=== PATIENT | male | born 1960 | race American Indian/Alaskan Native ===

== ENCOUNTER 2018-01-22 06:26 | Day surgery (SDC) | payer MEDICARE ==
[2018-01-22] MEDS ORDERED: NACL 0.9% 500 ML 500 ML ONE (06:49)
[2018-01-22] MEDS ORDERED: NACL 0.9% 500 ML 500 ML IV SCH (07:00)
[2018-01-22 07:23] LABS: Basophils # (Auto) 0.1 K/mm3 (0.0-0.1); Basophils % (Auto) 0.8 % (0.0-1.8); Eosinophils # (Auto) 0.2 K/mm3 (0.0-0.4); Eosinophils % (Auto) 2.4 % (0.0-4.3); Hematocrit 37.9 % (35.5-45.6); Hemoglobin 12.7 gm/dl (11.8-15.2); Lymphocytes # (Auto) 2.5 K/mm3 (1.2-5.4); Lymphocytes % (Auto) 34.7 % (13.4-35.0); Mean Corpuscular HGB Conc 33 % (32-34); Mean Corpuscular Hemoglobin 31 pg (28-32); Mean Corpuscular Volume 92 fl (84-94); Monocytes # (Auto) 0.8 K/mm3 (0.0-0.8); Monocytes % (Auto) 10.8 % (0.0-7.3); Platelet Count 230 K/mm3 (140-440); Red Blood Count 4.13 M/mm3 (3.65-5.03); Red Cell Distribution Width 14.3 % (13.2-15.2)
[2018-01-22 07:33] LABS: INR 1.05 (0.87-1.13)
[2018-01-22 07:34] LABS: Partial Thromboplastin Time 24.8 Sec. (24.2-36.6)
[2018-01-22 07:41] LABS: BUN/Creatinine Ratio 7; Blood Urea Nitrogen 9 mg/dL (9-20); Calcium 8.8 mg/dL (8.4-10.2); Hemolysis Index 36
[2018-01-22] MEDS ORDERED: HEPARIN/NS 5000 UNIT/500ML(CATH LAB) 1,000 ML IR ONE (08:22)
[2018-01-22] MEDS ORDERED: HEPARIN 10,000 UNITS/10 ML ONE (08:22)
[2018-01-22] MEDS ORDERED: CALAN ONE (08:23)
[2018-01-22] MEDS ORDERED: VERSED ONE (08:23)
[2018-01-22] MEDS ORDERED: SUBLIMAZE ONE (08:23)
[2018-01-22] MEDS ORDERED: XYLOCAINE 2% INFILTRATI ONE (08:23)
[2018-01-22] MEDS ORDERED: NITROGLYCERIN SYRINGE 3 ML ONE (08:24)
--- NOTE | 2018-01-22 09:27 | Short Stay Summary ---
Short Stay Documentation Date of service: 01/22/18 - History H&P: obtained from office - Allergies and Medications Current Medications: Allergies No Known Allergies Allergy (Verified 10/27/14 18:16) Home Medications Medication Instructions Recorded Confirmed Last Taken Type Nitroglycerin (Nf) [Nitrostat] 0.3 mg SL Q5MIN PRN 09/30/16 01/22/18 1 Week Ago History ~01/15/18 Omeprazole 20 mg PO DAILY 09/30/16 01/22/18 01/21/18 History Aspirin [Aspirin TAB] 325 mg PO QDAY #30 tablet 10/05/16 01/22/18 01/22/18 05: 00 Rx Clopidogrel Bisulfate [Plavix] 75 mg PO DAILY #30 tablet 10/05/16 01/22/1801/22 05:00 Rx ISOSORBIDE MONOnitrate [Imdur ER] 120 mg PO QDAY #60 tablet 10/05/16 01/22/18 Rx Rosuvastatin Calcium [Crestor] 40 mg PO QHS #30 tablet 10/05/16 01/22/18 Rx hydrALAZINE [Apresoline TAB] 25 mg PO Q8HR #90 tablet 10/05/16 01/22/18 Unknown Rx Carvedilol [Coreg] 3.125 mg PO BID 01/22/18 01/22/18 01/22/18 05:00 History Fenofibrate 200 mg PO DAILY 01/22/18 01/22/18 01/21/18 History Insulin Lispro [HumaLOG VIAL] 16 units SQ BID 01/22/18 01/22/18 01/21/18 17:00 History NIFEdipine XL [Procardia Xl] 60 mg PO QDAY 01/22/18 01/22/18 01/21/18 History Active Medications Sodium Chloride (Nacl 0.9% 500 Ml) 500 mls @ 50 mls/hr IV DIRECT RACH Stop: 01/22/18 16:59 Last Admin: 01/22/18 07:30 Dose: 50 mls/hr - Physical exam General appearance: no acute distress HEENT: Atraumatic Lungs: Clear to auscultation Breasts: deferred Heart: Regular rate Gastrointestinal: normal Male Genitourinary: deferred Female Genitourinary: deferred Rectal Exam: deferred Extremities: no ischemia Neurological: Normal gait - Brief post op/procedure progress note Date of procedure: 01/22/18 Pre-op diagnosis: Chest Pain Post-op diagnosis: same Procedure: LHC and LV gram Anesthesia: MAC Findings: See report Surgeon: KHURRAM AGUILAR Estimated blood loss: none Pathology: none Condition: stable - Hospital course Hospital course: Uneventful - Disposition Condition at discharge: Good Disposition: DC-01 TO HOME OR SELFCARE Short Stay Discharge Plan Activity: advance as tolerated Weight Bearing Status: Weight Bear as Tolerated Diet: low fat, low cholesterol, low salt, diabetic Follow up with: URIEL GREENE MD [Primary Care Provider] - 7 Days
[2018-01-22] MEDS ORDERED: NACL 0.9% 1000 ML 1,000 ML IV SCH (10:00)
--- NOTE | 2018-01-22 10:08 | Cardiac Catherization Report ---
LEFT HEART CATHETERIZATION INDICATION: Stable angina. ORDERING PHYSICIAN: Ryan Croft MD PROCEDURES PERFORMED: 1. Selective left and right coronary angiography. 2. Left ventriculography. DESCRIPTION OF PROCEDURE: After obtaining the consent, the patient was draped using sterile technique. A 2% lidocaine was injected into the right wrist. A 6-[place] vascular sheath was inserted into the right radial artery. A 6[place] JL3.5 catheter was used to selectively engage left coronary artery. A 6[place] JR4 catheter was used to selectively engage the right coronary artery. A 6-[place] JR4 catheter was used to hand inject the left ventriculogram. No complications occurred during the procedure. Hemostasis was achieved at the end of the procedure using manual pressure. SPECIMEN REMOVED: None. ESTIMATED BLOOD LOSS: Minimal. SEDATION ADMINISTERED: 1 mg of IV Versed and 50 mcg of IV fentanyl. PHYSICIAN-PATIENT [id number] SEDATION START TIME: 8:58 a.m. PHYSICIAN-PATIENT [id number]-SU-[id number] SEDATION STOP TIME: 9:13 a.m. TOTAL SEDATION TIME: 15 minutes. FINDINGS: HEMODYNAMICS: 1. Aortic pressure 158/85. LV systolic pressure 158 mmHg. No gradient across the left ventricular outflow tract. 2. LVEDP measured at 27 mmHg. CARDIAC STRUCTURES: The left ventricle is normal in size and systolic function. Left ventricular ejection fraction estimated between 65% and 70%. The proximal aortic root is within normal limits. CORONARY ANATOMY: 1. This is a right dominant circulation. 2. The left main appears to be angiographically normal. 3. The left anterior descending artery has evidence of diffuse 50% tubular disease in the mid segment. 4. The left circumflex artery has evidence of a patent stent in the mid segment. The AV groove vessel is occluded and is unchanged from the study dated 11/20/2012. 5. The right coronary artery is a small caliber vessel. The right coronary artery appears to be a dominant vessel with no obstructive disease noted within the right coronary artery. IMPRESSION: 1. Patent circumflex artery stent with a known occluded atrioventricular groove vessel due to stent jailing. This finding is unchanged from the cath performed in 2012. 2. Moderate nonobstructive mid left anterior descending tubular disease, also unchanged from the study dated 11/2012. 3. Normal left ventricular size and systolic function with an ejection fraction estimated between 65% and 70%. 4. Left ventricular end-diastolic pressure measured 27 mmHg. RECOMMENDATIONS: Continue current medical therapy and risk factor modification. [facility]# [id number] MARY/DANIKA
[2018-01-22 12:20] VITALS: BP 163/74
== END 2018-01-22 12:45 | disposition home or self-care (01) ==
LOC: CATHLABREC 06:26
PROVIDERS: ATTEND Internal Medicine Cardiovascular Disease
DX: I25.118 Atherosclerotic heart disease of native coronary artery with other forms of angina pectoris (principal); I11.0 Hypertensive heart disease with heart failure; I50.9 Heart failure, unspecified; E10.65 Type 1 diabetes mellitus with hyperglycemia; E78.2 Mixed hyperlipidemia; E78.00 Pure hypercholesterolemia, unspecified; G47.30 Sleep apnea, unspecified; D64.9 Anemia, unspecified; M19.90 Unspecified osteoarthritis, unspecified site; F41.9 Anxiety disorder, unspecified; Z72.89 Other problems related to lifestyle; Z98.890 Other specified postprocedural states; Z82.49 Family history of ischemic heart disease and other diseases of the circulatory system; Z79.899 Other long term (current) drug therapy; Z79.4 Long term (current) use of insulin; Z79.82 Long term (current) use of aspirin; Z87.891 Personal history of nicotine dependence
CPT/HCPCS: 36415; 80048; 85025; 85610; 85730; 93005; 93010; 93458; 99156; C1894; J1644; J2250; J3010; J7040; Q9967

== ENCOUNTER 2019-03-30 06:28 | Day surgery (SDC) | payer MEDICARE ==
[2019-03-30] MEDS ORDERED: ASPIRIN EC 325 MG TAB PO NR (06:46)
[2019-03-30] MEDS ORDERED: SODIUM CHLORIDE 0.9% 500 ML 500 ML IV SCH (07:00)
[2019-03-30 07:48] LABS: Basophils % (Auto) 0.5 % (0.0-1.8); Eosinophils # (Auto) 0.1 K/mm3 (0.0-0.4); Eosinophils % (Auto) 2.6 % (0.0-4.3); Hematocrit 35.9 % (35.5-45.6); Hemoglobin 12.2 gm/dl (11.8-15.2); Lymphocytes # (Auto) 2.3 K/mm3 (1.2-5.4); Lymphocytes % (Auto) 43.2 % (13.4-35.0); Mean Corpuscular HGB Conc 34 % (32-34); Mean Corpuscular Volume 97 fl (84-94); Monocytes # (Auto) 0.5 K/mm3 (0.0-0.8); Monocytes % (Auto) 9.7 % (0.0-7.3); Platelet Count 242 K/mm3 (140-440); Red Blood Count 3.69 M/mm3 (3.65-5.03); Red Cell Distribution Width 14.4 % (13.2-15.2)
[2019-03-30 07:55] LABS: BUN/Creatinine Ratio 7; Blood Urea Nitrogen 8 mg/dL (9-20); Calcium 8.9 mg/dL (8.4-10.2); Hemolysis Index 14; INR 1.12 (0.87-1.13)
[2019-03-30] MEDS ORDERED: HEPARIN/NS 5000 UNIT/500ML 1,000 ML IR ONE (09:09)
[2019-03-30] MEDS ORDERED: HEPARIN 10,000 UNITS/10 ML VIAL ONE (09:09)
[2019-03-30] MEDS ORDERED: NITROGLYCERIN SYRINGE 3 ML ONE (09:10)
[2019-03-30] MEDS ORDERED: fentaNYL 100 MCG/2 ML INJ ONE (09:10)
[2019-03-30] MEDS ORDERED: VERAPAMIL 5 MG/2 ML INJ ONE (09:10)
[2019-03-30] MEDS ORDERED: MIDAZOLAM 2 MG/2 ML INJ ONE (09:10)
[2019-03-30] MEDS ORDERED: LIDOCAINE (2%) 20 MG/1 ML VIAL 20 ML MDV INFILTRATI ONE (09:10)
--- NOTE | 2019-03-30 10:37 | Discharge Summary ---
Short Stay Discharge Plan Activity: advance as tolerated Weight Bearing Status: Full Weight Bearing Diet: low fat, low cholesterol, low salt Wound: keep clean and dry Special Instructions: no heavy lifting (3 days) Follow up with: URIEL GREENE MD [Primary Care Provider] - 7 Days GUDELIA FLETCHER MD [Staff Physician] - 7 Days
--- NOTE | 2019-03-30 10:58 | Cardiac Catherization Report ---
CARDIAC CATHETERIZATION REPORT REASON FOR PROCEDURE: Chest pain and coronary artery disease. The patient is a 59-year-old man with a history of coronary artery disease, status post distal circumflex artery stenting, presented for cardiac catheterization for recurrent chest pain. PROCEDURES: 1. Left heart catheterization. 2. Selective left and right coronary angiography. 3. Left ventricular angiography. 4. Sedation time, start 09:42, end 09:59. The patient was prepped and draped in a sterile fashion after informed consent. The right radial cath site was prepped and draped after a negative Florin's test. The right radial artery was entered using Seldinger technique followed by placement of a 6-[place] hydrophilic sheath. Routine radial cocktail was administered via the sheath. Selective left and right coronary angiography was performed using a #3.5 left Shayne, and a #4 right Shayne. A pigtail catheter was used for left ventricular angiography. Catheters and the sheaths were removed, hemostasis achieved using a TR band. The patient was returned to postprocedure unit in stable condition. There were no complications. FINDINGS: HEMODYNAMICS: Left ventricular end-diastolic pressure was 22, following coronary angiography. Ascending aortic pressure 136/68. There was no significant pressure gradient on pullback across the aortic valve. CORONARY ANGIOGRAPHY: The left main coronary artery was free of significant disease. There was a long segment of mild myocardial bridging of the mid LAD, otherwise the LAD and diagonal branches were angiographically normal. The circumflex artery was a large vessel, codominant with the right coronary artery. A stent was visible in the distal circumflex artery, perfusing a large posterior left ventricular branch. The stent was widely patent. There was mild in-stent restenosis of the distal third of the stent, with a 20-30% luminal stenosis. This was unchanged from review of the angiograms from 03/22/2018. A very small caliber, distal branch, which originated from the stented segment was occluded at its ostium, and perfused from the right coronary artery by right to left collaterals. This lesion was also unchanged from the previous angiogram a year ago. The right coronary artery was a relatively small caliber vessel, codominant with the circumflex, and free of significant disease. There was normal to hyperdynamic left ventricular systolic function with ejection fraction 65-70%. CONCLUSION: 1. Single vessel coronary artery disease, with a widely patent distal circumflex artery stent, demonstrating only mild in-stent restenosis. 2. Chronic total occlusion of a very small caliber, distal circumflex artery branch, originated from within the stented segment. 3. 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 4. Normal to hyperdynamic left ventricular systolic function, ejection fraction 65-70%. RECOMMENDATION: Medical therapy and risk factor modification. [facility]# [id number] CA/NTS
[2019-03-30] MEDS ORDERED: SODIUM CHLORIDE 0.9% 1000 ML 1,000 ML IV SCH (11:00)
[2019-03-30 13:02] VITALS: BP 148/70
== END 2019-03-30 13:30 | disposition home or self-care (01) ==
LOC: CATHLABREC 06:28
PROVIDERS: ATTEND Internal Medicine Cardiovascular Disease
DX: I25.10 Atherosclerotic heart disease of native coronary artery without angina pectoris (principal); E78.2 Mixed hyperlipidemia; I11.0 Hypertensive heart disease with heart failure; E10.65 Type 1 diabetes mellitus with hyperglycemia; I50.9 Heart failure, unspecified; G47.30 Sleep apnea, unspecified; M19.90 Unspecified osteoarthritis, unspecified site; F41.9 Anxiety disorder, unspecified; T82.855A Stenosis of coronary artery stent, initial encounter; Z79.899 Other long term (current) drug therapy; Z79.82 Long term (current) use of aspirin; Z79.4 Long term (current) use of insulin; Z87.891 Personal history of nicotine dependence; Z98.890 Other specified postprocedural states; Z95.5 Presence of coronary angioplasty implant and graft; Z72.89 Other problems related to lifestyle; Z82.49 Family history of ischemic heart disease and other diseases of the circulatory system
CPT/HCPCS: 36415; 80048; 82962; 85025; 85610; 85730; 93005; 93010; 93458; 99156; C1894; J1644; J2250; J3010; J7040; Q9967

== ENCOUNTER 2020-07-15 14:20 | Inpatient (IN) | payer MEDICARE ==
[2020-07-15 15:06] LABS: Hematocrit 21.9 % (35.5-45.6); Hemoglobin 7.5 gm/dl (11.8-15.2); Mean Corpuscular HGB Conc 34 % (32-34); Mean Corpuscular Volume 98 fl (84-94); Platelet Count 305 K/mm3 (140-440); Red Blood Count 2.24 M/mm3 (3.65-5.03); Red Cell Distribution Width 16.5 % (13.2-15.2)
--- NOTE | 2020-07-15 15:17 | XRay Report ---
CHEST 1 VIEW 07/15/2020 2:11 PM INDICATION / CLINICAL INFORMATION: Chest Pain. COMPARISON: 10/02/2016. FINDINGS: SUPPORT DEVICES: None. HEART / MEDIASTINUM: No significant abnormality. LUNGS / PLEURA: No significant pulmonary or pleural abnormality. No pneumothorax. ADDITIONAL FINDINGS: No significant additional findings. IMPRESSION: No acute cardiopulmonary abnormality. Signer Name: Tom Cerna MD Signed: 07/15/2020 3:12 PM Workstation Name: [id number]
[2020-07-15 15:19] LABS: Basophils % (Auto) 0.3 % (0.0-1.8); Eosinophils # (Auto) 0.1 K/mm3 (0.0-0.4); Eosinophils % (Auto) 0.8 % (0.0-4.3); Lymphocytes # (Auto) 2.2 K/mm3 (1.2-5.4); Lymphocytes % (Auto) 23.3 % (13.4-35.0); Monocytes % (Auto) 10.7 % (0.0-7.3)
[2020-07-15 15:22] LABS: BUN/Creatinine Ratio 8; Blood Urea Nitrogen 8 mg/dL (9-20); Calcium 8.5 mg/dL (8.4-10.2); Hemolysis Index 1
[2020-07-15 15:27] LABS: Albumin 2.8 g/dL (3.9-5)
[2020-07-15 15:52] LABS: Total Cells Counted 100
[2020-07-15 15:53] LABS: RBC Morphology Normal
[2020-07-15] MEDS ORDERED: NITROGLYCERIN 2% OINT 1 GM TP ONE (16:16)
--- NOTE | 2020-07-15 16:16 | Emergency Department Report ---
ED Chest Pain HPI - General Chief Complaint: Chest Pain Stated Complaint: CHEST PAIN Time Seen by Provider: 07/15/20 15:50 Source: patient Mode of arrival: Ambulatory Limitations: No Limitations - History of Present Illness Initial Comments: 60-year old male with a past medical history of CAD with 4 stents, CHF, diabetes, hypertension, and recent diagnosis of anemia presents to the hospital complaints of chest pain since 6:30 AM. Pain is substernal and left-sided radiating to both arms. Pain is described as a constant pressure with associated shortness of breath. He denies nausea, vomiting, or diaphoresis. Patient states pain was 7/10 intensity. He received nitroglycerin x2 and aspirin 325 mg in route and pain decreased to 4/10. Patient states he is currently awaiting Covid test results. Covid test was collected by the health department yesterday. He reports a positive Covid exposure, cough, and recent loss of taste or smell that is "just starting to come back". Patient also reports that he was recent diagnosed with anemia and did not have blood in his stools. His PMD is in the process of making outpatient arrangements with a ematologist. Patient reports compliance with his medications including aspirin and Plavix Severity scale (0 -10): 6 - Related Data Home Medications Medication Instructions Recorded Confirmed Last Taken Nitroglycerin (Nf) [Nitrostat] 0.4 mg SL Q5MIN PRN 09/30/16 03/30/19 1 Week Ago ~03/23/19 Omeprazole 20 mg PO DAILY 09/30/16 03/30/19 03/29/19 Fenofibrate 200 mg PO DAILY 01/22/18 03/30/19 03/29/19 Insulin Lispro [HumaLOG VIAL] 16 units SQ BID 01/22/18 03/30/19 03/29/19 NIFEdipine XL [Procardia Xl] 60 mg PO QDAY 01/22/18 03/30/19 03/29/19 carvediloL [Coreg] 3.125 mg PO BID 01/22/18 03/30/19 03/29/19 Aspirin EC [Ecotrin] 325 mg PO DAILY 03/30/19 03/30/19 03/29/19 Insulin Glargine,Hum.rec.anlog 40 units SQ HS 03/30/19 03/30/19 03/29/19 [Chichi Weir] Previous Rx's Medication Instructions Recorded Last Taken Type Clopidogrel Bisulfate [Plavix] 75 mg PO DAILY #30 tablet 10/05/16 03/29/19 Rx ISOSORBIDE MONOnitrate [Imdur ER] 120 mg PO QDAY #60 tablet 10/05/16 03/29/19 Rx Rosuvastatin Calcium [Crestor] 40 mg PO QHS #30 tablet 10/05/16 03/29/19 Rx hydrALAZINE [Apresoline TAB] 25 mg PO Q8HR #90 tablet 10/05/16 03/29/19 Rx Allergies Allergy/AdvReac Type Severity Reaction Status Date / Time No Known Allergies Allergy Verified 10/27/14 18:16 Heart Score - HEART Score History: Slightly suspicious EKG: Non-specific Age: 45-65 Risk factors: > 3 risk factors or hx of atherosclerotic disease Troponin: 1-3x normal limit HEART Score: 5 ED Review of Systems ROS: Stated complaint: CHEST PAIN Other details as noted in HPI Comment: All other systems reviewed and negative ED Past Medical Hx - Past Medical History Hx Hypertension: Yes Hx Heart Attack/AMI: Yes (2012) Hx Congestive Heart Failure: Yes Hx Diabetes: Yes Hx Deep Vein Thrombosis: No Hx Pulmonary Embolism: No Hx Liver Disease: No Hx Renal Disease: Yes (saw a Renal Dr but everything okay) Hx Arthritis: Yes (bilateral knees) Hx Seizures: No Hx Asthma: No Hx COPD: No Hx Tuberculosis: No Hx Dementia: No Hx HIV: No - Surgical History Hx Coronary Stent: Yes (4: last stent 2012 place 2 stents) Hx Pacemaker: No Hx Internal Defibrillator: No - Social History Smoking Status: Never Smoker Substance Use Type: None - Medications Home Medications: Home Medications Medication Instructions Recorded Confirmed Last Taken Type Nitroglycerin (Nf) [Nitrostat] 0.4 mg SL Q5MIN PRN 09/30/16 03/30/19 1 Week Ago History ~03/23/19 Omeprazole 20 mg PO DAILY 09/30/16 03/30/19 03/29/19 History Clopidogrel Bisulfate [Plavix] 75 mg PO DAILY #30 tablet 10/05/16 03/30/19 03/29/19 Rx ISOSORBIDE MONOnitrate [Imdur ER] 120 mg PO QDAY #60 tablet 10/05/16 03/30/19 03/29/19 Rx Rosuvastatin Calcium [Crestor] 40 mg PO QHS #30 tablet 10/05/16 03/30/19 03/29/19 Rx hydrALAZINE [Apresoline TAB] 25 mg PO Q8HR #90 tablet 10/05/16 03/30/19 03/29/19 Rx Fenofibrate 200 mg PO DAILY 01/22/18 03/30/19 03/29/19 History Insulin Lispro [HumaLOG VIAL] 16 units SQ BID 01/22/18 03/30/19 03/29/19 History NIFEdipine XL [Procardia Xl] 60 mg PO QDAY 01/22/18 03/30/19 03/29/19 History carvediloL [Coreg] 3.125 mg PO BID 01/22/18 03/30/19 03/29/19 History Aspirin EC [Ecotrin] 325 mg PO DAILY 03/30/19 03/30/19 03/29/19 History Insulin Glargine,Hum.rec.anlog 40 units SQ HS 03/30/19 03/30/19 03/29/19 History [Chichi Weir] ED Physical Exam - General Limitations: No Limitations - Other Other exam information: General: No acute distress Head: Atraumatic Eyes: normal appearance Neck: Normal appearance, no midline tenderness Chest: Clear to auscultation bilaterally CV: Regular rate and rhythm Abdomen: Soft, normal bowel sounds, nontender, nondistended, no rebound or guarding Rectal: Guaiac negative brown stool Back: Normal inspection Extremity: Normal inspection, full range of motion Neuro: Alert O x 3, no facial asymmetry, speech clear, no gross motor sensory deficit Psych: Appropriate behavior Skin: No rash ED Course Vital Signs 07/15/20 07/15/20 07/15/20 14:29 16:13 16:30 Temperature 98.4 F Pulse Rate 105 H 73 89 Respiratory 20 19 20 Rate Blood Pressure 153/60 143/57 O2 Sat by Pulse 100 100 100 Oximetry 07/15/20 07/15/20 07/15/20 17:00 17:22 17:30 Temperature Pulse Rate 84 88 85 Respiratory 17 19 Rate Blood Pressure 142/56 150/56 150/56 O2 Sat by Pulse 100 100 Oximetry 07/15/20 18:00 Temperature Pulse Rate 91 H Respiratory 18 Rate Blood Pressure 135/51 O2 Sat by Pulse 100 Oximetry - Reevaluation(s) Reevaluation #1: 07/15/20 18:15 Repeat troponin reviewed and stable BIPIN score - Bipin Score Age > 65: (0) No Aspirin use within the Past 7 Days: (1) Yes ED Medical Decision Making - Lab Data Result diagrams: 07/15/20 14:42 07/15/20 16:16 Lab Results 07/15/20 07/15/20 07/15/20 Range/Units 14:42 14:42 14:57 WBC 9.4 (4.5-11.0) K/mm3 RBC 2.24 L (3.65-5.03) M/mm3 Hgb 7.5 L (11.8-15.2) gm/dl Hct 21.9 L (35.5-45.6) % MCV 98 H (84-94) fl MCH 33 H (28-32) pg MCHC 34 (32-34) % RDW 16.5 H (13.2-15.2) % Plt Count 305 (140-440) K/mm3 Lymph % (Auto) 23.3 (13.4-35.0) % Armstrong % (Auto) 10.7 H (0.0-7.3) % Eos % (Auto) 0.8 (0.0-4.3) % Baso % (Auto) 0.3 (0.0-1.8) % Lymph # (Auto) 2.2 (1.2-5.4) K/mm3 Armstrong # (Auto) 1.0 H (0.0-0.8) K/mm3 Eos # (Auto) 0.1 (0.0-0.4) K/mm3 Baso # (Auto) 0.0 (0.0-0.1) K/mm3 Add Manual Diff Complete Total Counted 100 Seg Neutrophils % 64.9 (40.0-70.0) % Seg Neuts % (Manual) 65.0 (40.0-70.0) % Lymphocytes % (Manual) 21.0 (13.4-35.0) % Monocytes % (Manual) 12.0 H (0.0-7.3) % Eosinophils % (Manual) 2.0 (0.0-4.3) % Nucleated RBC % Not Reportable Seg Neutrophils # 6.1 (1.8-7.7) K/mm3 Seg Neutrophils # Man 6.1 (1.8-7.7) K/mm3 Band Neutrophils # 0.0 K/mm3 Lymphocytes # (Manual) 2.0 (1.2-5.4) K/mm3 Abs React Lymphs (Man) 0.0 K/mm3 Monocytes # (Manual) 1.1 H (0.0-0.8) K/mm3 Eosinophils # (Manual) 0.2 (0.0-0.4) K/mm3 Basophils # (Manual) 0.0 (0.0-0.1) K/mm3 Metamyelocytes # 0.0 K/mm3 Myelocytes # 0.0 K/mm3 Promyelocytes # 0.0 K/mm3 Blast Cells # 0.0 K/mm3 WBC Morphology Not Reportable Hypersegmented Neuts Not Reportable Hyposegmented Neuts Not Reportable Hypogranular Neuts Not Reportable Smudge Cells Not Reportable Toxic Granulation Not Reportable Toxic Vacuolation Not Reportable Dohle Bodies Not Reportable Pelger-Huet Anomaly Not Reportable Da Rods Not Reportable Platelet Estimate Not Reportable Clumped Platelets Not Reportable Plt Clumps, EDTA Not Reportable Large Platelets Not Reportable Giant Platelets Not Reportable Platelet Satelliting Not Reportable Plt Morphology Comment Not Reportable RBC Morphology Normal Dimorphic RBCs Not Reportable Polychromasia Not Reportable Hypochromasia Not Reportable Poikilocytosis Not Reportable Anisocytosis Not Reportable Microcytosis Not Reportable Macrocytosis Not Reportable Spherocytes Not Reportable Pappenheimer Bodies Not Reportable Sickle Cells Not Reportable Target Cells Not Reportable Tear Drop Cells Not Reportable Ovalocytes Not Reportable Helmet Cells Not Reportable Quiros-Lyles Bodies Not Reportable [place] Rings Not Reportable [place] Cells Not Reportable Bite Cells Not Reportable Crenated Cell Not Reportable Elliptocytes Not Reportable Acanthocytes (Spur) Not Reportable Rouleaux Not Reportable Hemoglobin C Crystals Not Reportable Schistocytes Not Reportable Malaria parasites Not Reportable Robinson Bodies Not Reportable Hem Pathologist Commnt No Sodium 128 L (137-145) mmol/L Potassium 4.0 (3.6-5.0) mmol/L Chloride 98.9 (98-107) mmol/L Carbon Dioxide 20 L (22-30) mmol/L Anion Gap 13 mmol/L BUN 8 L (9-20) mg/dL Creatinine 1.0 (0.8-1.3) mg/dL Estimated GFR > 60 ml/min BUN/Creatinine Ratio 8 % Glucose 380 H (75-100) mg/dL Calcium 8.5 (8.4-10.2) mg/dL Total Bilirubin 1.30 H (0.1-1.2) mg/dL Direct Bilirubin 1.0 H (0-0.2) mg/dL Indirect Bilirubin 0.3 mg/dL AST 46 H (5-40) units/L ALT 21 (7-56) units/L Alkaline Phosphatase 171 H (35-129) units/L Troponin T 0.056 H (0.00-0.029) ng/mL NT-Pro-B Natriuret Pep 702.5 (0-900) pg/mL Total Protein 6.5 (6.3-8.2) g/dL Albumin 2.8 L (3.9-5) g/dL Albumin/Globulin Ratio 0.8 % - EKG Data -: EKG Interpreted by Ar EKG shows normal: sinus rhythm, ST-T waves (No ST elevation ND) Rate: normal - EKG Data When compared to previous EKG there are: no significant change - Radiology Data Radiology results: report reviewed Chest x-ray: No acute finding - Medical Decision Making 60-year male with chest pain with significant cardiac history. Troponin mildly elevated. Also recent Covid exposure with negative chest x-ray and normal pulse ox. Patient placed in respiratory isolation until Covid test result. Patient treated in the ED with Nitropaste. Mild elevation troponin noted with no acute EKG changes. Cardiology consult ordered. Mild elevation in glucose without signs of DKA. IV insulin ordered. Anemia noted with guaiac negative stools and no signs of bleeding. Case discussed with hospitalist for admission. Critical Care Time: No Critical care attestation.: If time is entered above; I have spent that time in minutes in the direct care of this critically ill patient, excluding procedure time. ED Disposition Clinical Impression: Chest pain, Elevated troponin, Type II diabetes mellitus, uncontrolled, History of heart artery stent, Suspected COVID-19 virus infection, Anemia Disposition: OP ADMIT IP TO THIS HOSP Is pt being admited?: Yes Condition: Stable Time of Disposition: 16:47 (Dr. Gimenez/hospitalist)
[2020-07-15] MEDS ORDERED: INSULIN REGULAR, HUMAN 100 UNITS/1 ML IV ONE (16:19)
[2020-07-15 17:04] LABS: Creatine Kinase MB 2.7 ng/mL (0.0-4.0)
[2020-07-15 17:05] LABS: C-Reactive Protein 1.1 mg/dL (0.00-1.30)
[2020-07-15 18:24] LABS: Chol/HDL Ratio 1.7 %
--- NOTE | 2020-07-15 21:17 | History and Physical Report ---
History of Present Illness Date of examination: 07/15/20 Date of admission: 07/15/20 16:48 Chief complaint: Chest pain History of present illness: 60-year old male with a past medical history of CAD with 4 stents, CHF, diabetes, hypertension, and recent diagnosis of anemia presents to the hospital complaints of chest pain since 6:30 AM. Pain is substernal and left-sided radiating to both arms. Pain is described as a constant pressure with associated shortness of breath. He denies nausea, vomiting, or diaphoresis. Patient states pain was 7/10 intensity. He received nitroglycerin x2 and aspirin 325 mg in route and pain decreased to 4/10. Patient states he is currently awaiting Covid test results. Covid test was collected by the health department yesterday. He reports a positive Covid exposure, cough, and recent loss of taste or smell that is "just starting to come back". Patient also reports that he was recent diagnosed with anemia and did not have blood in his stools. His PMD is in the process of making outpatient arrangements with a bundle collector. Patient reports compliance with his medications including aspirin and Plavix Severity scale (0 -10): 6 - Related Data Home Medications Medication Instructions Recorded Confirmed Last Taken Nitroglycerin (Nf) [Nitrostat] 0.4 mg SL Q5MIN PRN 09/30/16 03/30/19 1 Week Ago ~03/23/19 Omeprazole 20 mg PO DAILY 09/30/16 03/30/19 03/29/19 Fenofibrate 200 mg PO DAILY 01/22/18 03/30/19 03/29/19 Insulin Lispro [HumaLOG VIAL] 16 units SQ BID 01/22/18 03/30/19 03/29/19 NIFEdipine XL [Procardia Xl] 60 mg PO QDAY 01/22/18 03/30/19 03/29/19 carvediloL [Coreg] 3.125 mg PO BID 01/22/18 03/30/19 03/29/19 Aspirin EC [Ecotrin] 325 mg PO DAILY 03/30/19 03/30/19 03/29/19 Insulin Glargine,Hum.rec.anlog 40 units SQ HS 03/30/19 03/30/19 03/29/19 [Chichi Weir] Previous Rx's Medication Instructions Recorded Last Taken Type Clopidogrel Bisulfate [Plavix] 75 mg PO DAILY #30 tablet 10/05/16 03/29/19 Rx ISOSORBIDE MONOnitrate [Imdur ER] 120 mg PO QDAY #60 tablet 10/05/16 03/29/19 Rx Rosuvastatin Calcium [Crestor] 40 mg PO QHS #30 tablet 10/05/16 03/29/19 Rx hydrALAZINE [Apresoline TAB] 25 mg PO Q8HR #90 tablet 10/05/16 03/29/19 Rx Allergies Allergy/AdvReac Type Severity Reaction Status Date / Time No Known Allergies Allergy Verified 10/27/14 18:16 Heart Score - HEART Score History: Slightly suspicious EKG: Non-specific Age: 45-65 Risk factors: > 3 risk factors or hx of atherosclerotic disease Troponin: 1-3x normal limit HEART Score: 5 - Past Medical History --Hypertension: Yes --Heart Attack/AMI: Yes (2012) --Congestive Heart Failure: Yes --Diabetes: Yes --Renal Disease: Yes (saw a Renal Dr but everything okay) --Arthritis: Yes (bilateral knees) - Surgical History --Coronary Stent: Yes (4: last stent 2012 place 2 stents) - Social History Smoking Status: Never Smoker Substance Use Type: None - Medications Home Medications: Home Medications Medication Instructions Recorded Confirmed Last Taken Type Nitroglycerin (Nf) [Nitrostat] 0.4 mg SL Q5MIN PRN 09/30/16 03/30/19 1 Week Ago History ~03/23/19 Omeprazole 20 mg PO DAILY 09/30/16 03/30/19 03/29/19 History Clopidogrel Bisulfate [Plavix] 75 mg PO DAILY #30 tablet 10/05/16 03/30/19 03/29/19 Rx ISOSORBIDE MONOnitrate [Imdur ER] 120 mg PO QDAY #60 tablet 10/05/16 03/30/19 03/29/19 Rx Rosuvastatin Calcium [Crestor] 40 mg PO QHS #30 tablet 10/05/16 03/30/19 03/29/19 Rx hydrALAZINE [Apresoline TAB] 25 mg PO Q8HR #90 tablet 10/05/16 03/30/19 03/29/19 Rx Fenofibrate 200 mg PO DAILY 01/22/18 03/30/19 03/29/19 History Insulin Lispro [HumaLOG VIAL] 16 units SQ BID 01/22/18 03/30/19 03/29/19 History NIFEdipine XL [Procardia Xl] 60 mg PO QDAY 01/22/18 03/30/19 03/29/19 History carvediloL [Coreg] 3.125 mg PO BID 01/22/18 03/30/19 03/29/19 History Aspirin EC [Ecotrin] 325 mg PO DAILY 03/30/19 03/30/19 03/29/19 History Insulin Glargine,Hum.rec.anlog 40 units SQ HS 03/30/19 03/30/19 03/29/19 History [Chichi Weir] Review of Systems ROS: Stated complaint: CHEST PAIN Other details as noted in HPI Comment: All other systems reviewed and negative Medications and Allergies Allergies Allergy/AdvReac Type Severity Reaction Status Date / Time No Known Allergies Allergy Verified 10/27/14 18:16 Home Medications Medication Instructions Recorded Confirmed Last Taken Type Nitroglycerin (Nf) [Nitrostat] 0.4 mg SL Q5MIN PRN 09/30/16 07/15/20 1 Week Ago History ~03/23/19 Omeprazole 20 mg PO DAILY 09/30/16 07/15/20 03/29/19 History Clopidogrel Bisulfate [Plavix] 75 mg PO DAILY #30 tablet 10/05/16 07/15/20 03/29/19 Rx ISOSORBIDE MONOnitrate [Imdur ER] 120 mg PO QDAY #60 tablet 10/05/16 07/15/20 03/29/19 Rx Rosuvastatin Calcium [Crestor] 40 mg PO QHS #30 tablet 10/05/16 07/15/20 03/29/19 Rx hydrALAZINE [Apresoline TAB] 25 mg PO Q8HR #90 tablet 10/05/16 07/15/20 03/29/19 Rx Fenofibrate 200 mg PO DAILY 01/22/18 07/15/20 03/29/19 History Insulin Lispro [HumaLOG VIAL] 16 units SQ BID 01/22/18 07/15/20 03/29/19 History NIFEdipine XL [Procardia Xl] 60 mg PO QDAY 01/22/18 07/15/20 03/29/19 History carvediloL [Coreg] 3.125 mg PO BID 01/22/18 07/15/20 03/29/19 History Aspirin EC [Ecotrin] 325 mg PO DAILY 03/30/19 07/15/20 03/29/19 History Insulin Glargine,Hum.rec.anlog 40 units SQ HS 03/30/19 07/15/20 03/29/19 History [Chichi Fryemohamudchristal] Exam - Constitutional Vitals: Temp Pulse Resp BP Pulse Ox 97.9 F 86 18 135/58 100 07/15/20 20:29 07/15/20 20:29 07/15/20 20:29 07/15/20 20:40 07/15/20 20:29 General appearance: Present: no acute distress, well-nourished - EENT Eyes: Present: PERRL ENT: hearing intact, clear oral mucosa - Neck Neck: Present: supple, normal ROM - Respiratory Respiratory effort: normal Respiratory: bilateral: CTA - Cardiovascular Heart Sounds: Present: S1 & S2. Absent: rub, click - Extremities Extremities: pulses symmetrical, No edema Peripheral Pulses: within normal limits - Abdominal General gastrointestinal: Present: soft, non-tender, non-distended, normal bowel sounds Male genitourinary: Present: normal - Integumentary Integumentary: Present: clear, warm, dry - Musculoskeletal Musculoskeletal: gait normal, strength equal bilaterally - Psychiatric Psychiatric: appropriate mood/affect, intact judgment & insight - Neurologic Neurologic: CNII-XII intact, moves all extremities HEART Score - HEART Score EKG: Non-specific Age: 45-65 Risk factors: > 3 risk factors or hx of atherosclerotic disease Troponin: Troponin T 0.056 ng/mL (0.00-0.029) H 07/15/20 20:13 Troponin: 1-3x normal limit - Critical Actions Critical Actions: 4-6 pts:12-16.6% risk of adverse cardiac event. Should be admitted Results - Labs CBC & Chem 7: 07/20/20 05:07 07/16/20 04:28 Labs: Laboratory Last Values WBC 9.4 K/mm3 (4.5-11.0) 07/15/20 14:42 RBC 2.24 M/mm3 (3.65-5.03) L 07/15/20 14:42 Hgb 7.5 gm/dl (11.8-15.2) L 07/15/20 14:42 Hct 21.9 % (35.5-45.6) L 07/15/20 14:42 MCV 98 fl (84-94) H 07/15/20 14:42 MCH 33 pg (28-32) H 07/15/20 14:42 MCHC 34 % (32-34) 07/15/20 14:42 RDW 16.5 % (13.2-15.2) H 07/15/20 14:42 Plt Count 305 K/mm3 (140-440) 07/15/20 14:42 Lymph % (Auto) 23.3 % (13.4-35.0) 07/15/20 14:42 [place] % (Auto) 10.7 % (0.0-7.3) H 07/15/20 14:42 Eos % (Auto) 0.8 % (0.0-4.3) 07/15/20 14:42 Baso % (Auto) 0.3 % (0.0-1.8) 07/15/20 14:42 Lymph # (Auto) 2.2 K/mm3 (1.2-5.4) 07/15/20 14:42 [place] # (Auto) 1.0 K/mm3 (0.0-0.8) H 07/15/20 14:42 Eos # (Auto) 0.1 K/mm3 (0.0-0.4) 07/15/20 14:42 Baso # (Auto) 0.0 K/mm3 (0.0-0.1) 07/15/20 14:42 Add Manual Diff Complete 07/15/20 14:42 Total Counted 100 07/15/20 14:42 Seg Neutrophils % 64.9 % (40.0-70.0) 07/15/20 14:42 Seg Neuts % (Manual) 65.0 % (40.0-70.0) 07/15/20 14:42 Lymphocytes % (Manual) 21.0 % (13.4-35.0) 07/15/20 14:42 Monocytes % (Manual) 12.0 % (0.0-7.3) H 07/15/20 14:42 Eosinophils % (Manual) 2.0 % (0.0-4.3) 07/15/20 14:42 Nucleated RBC % Not Reportable 07/15/20 14:42 Seg Neutrophils # 6.1 K/mm3 (1.8-7.7) 07/15/20 14:42 Seg Neutrophils # Man 6.1 K/mm3 (1.8-7.7) 07/15/20 14:42 Band Neutrophils # 0.0 K/mm3 07/15/20 14:42 Lymphocytes # (Manual) 2.0 K/mm3 (1.2-5.4) 07/15/20 14:42 Abs React Lymphs (Man) 0.0 K/mm3 07/15/20 14:42 Monocytes # (Manual) 1.1 K/mm3 (0.0-0.8) H 07/15/20 14:42 Eosinophils # (Manual) 0.2 K/mm3 (0.0-0.4) 07/15/20 14:42 Basophils # (Manual) 0.0 K/mm3 (0.0-0.1) 07/15/20 14:42 Metamyelocytes # 0.0 K/mm3 07/15/20 14:42 Myelocytes # 0.0 K/mm3 07/15/20 14:42 Promyelocytes # 0.0 K/mm3 07/15/20 14:42 Blast Cells # 0.0 K/mm3 07/15/20 14:42 WBC Morphology Not Reportable 07/15/20 14:42 Hypersegmented Neuts Not Reportable 07/15/20 14:42 Hyposegmented Neuts Not Reportable 07/15/20 14:42 Hypogranular Neuts Not Reportable 07/15/20 14:42 Smudge Cells Not Reportable 07/15/20 14:42 Toxic Granulation Not Reportable 07/15/20 14:42 Toxic Vacuolation Not Reportable 07/15/20 14:42 Dohle Bodies Not Reportable 07/15/20 14:42 Pelger-Huet Anomaly Not Reportable 07/15/20 14:42 Da Rods Not Reportable 07/15/20 14:42 Platelet Estimate Not Reportable 07/15/20 14:42 Clumped Platelets Not Reportable 07/15/20 14:42 Plt Clumps, EDTA Not Reportable 07/15/20 14:42 Large Platelets Not Reportable 07/15/20 14:42 Giant Platelets Not Reportable 07/15/20 14:42 Platelet Satelliting Not Reportable 07/15/20 14:42 Plt Morphology Comment Not Reportable 07/15/20 14:42 RBC Morphology Normal 07/15/20 14:42 Dimorphic RBCs Not Reportable 07/15/20 14:42 Polychromasia Not Reportable 07/15/20 14:42 Hypochromasia Not Reportable 07/15/20 14:42 Poikilocytosis Not Reportable 07/15/20 14:42 Anisocytosis Not Reportable 07/15/20 14:42 Microcytosis Not Reportable 07/15/20 14:42 Macrocytosis Not Reportable 07/15/20 14:42 Spherocytes Not Reportable 07/15/20 14:42 Pappenheimer Bodies Not Reportable 07/15/20 14:42 Sickle Cells Not Reportable 07/15/20 14:42 Target Cells Not Reportable 07/15/20 14:42 Tear Drop Cells Not Reportable 07/15/20 14:42 Ovalocytes Not Reportable 07/15/20 14:42 Helmet Cells Not Reportable 07/15/20 14:42 [place] Bodies Not Reportable 07/15/20 14:42 [place] Rings Not Reportable 07/15/20 14:42 Jose Cells Not Reportable 07/15/20 14:42 Bite Cells Not Reportable 07/15/20 14:42 Crenated Cell Not Reportable 07/15/20 14:42 Elliptocytes Not Reportable 07/15/20 14:42 Acanthocytes (Spur) Not Reportable 07/15/20 14:42 Rouleaux Not Reportable 07/15/20 14:42 Hemoglobin C Crystals Not Reportable 07/15/20 14:42 Schistocytes Not Reportable 07/15/20 14:42 Malaria parasites Not Reportable 07/15/20 14:42 Robinson Bodies Not Reportable 07/15/20 14:42 Hem Pathologist Commnt No 07/15/20 14:42 D-Dimer 483.86 ng/mlDDU (0-234) H 07/15/20 16:16 Sodium 128 mmol/L (137-145) L 07/15/20 14:42 Potassium 4.0 mmol/L (3.6-5.0) 07/15/20 14:42 Chloride 98.9 mmol/L (98-107) 07/15/20 14:42 Carbon Dioxide 20 mmol/L (22-30) L 07/15/20 14:42 Anion Gap 13 mmol/L 07/15/20 14:42 BUN 8 mg/dL (9-20) L 07/15/20 14:42 Creatinine 1.0 mg/dL (0.8-1.3) 07/15/20 14:42 Estimated GFR > 60 ml/min 07/15/20 14:42 BUN/Creatinine Ratio 8 % 07/15/20 14:42 Glucose 320 mg/dL (75-100) H 07/15/20 16:16 POC Glucose 261 mg/dL (70-105) H 07/15/20 17:28 Calcium 8.5 mg/dL (8.4-10.2) 07/15/20 14:42 Ferritin 678.7 ng/mL (30.0-300.0) H 07/15/20 16:16 Total Bilirubin 1.30 mg/dL (0.1-1.2) H 07/15/20 14:57 Direct Bilirubin 1.0 mg/dL (0-0.2) H 07/15/20 14:57 Indirect Bilirubin 0.3 mg/dL 07/15/20 14:57 AST 46 units/L (5-40) H 07/15/20 14:57 ALT 21 units/L (7-56) 07/15/20 14:57 Alkaline Phosphatase 171 units/L (35-129) H 07/15/20 14:57 Lactate Dehydrogenase 181 units/L (91-180) H 07/15/20 16:16 Total Creatine Kinase 101 units/L (55-170) 07/15/20 16:50 CK-MB (CK-2) 2.7 ng/mL (0.0-4.0) 07/15/20 16:50 CK-MB (CK-2) Rel Index 2.6 (0-4) 07/15/20 16:50 Troponin T 0.056 ng/mL (0.00-0.029) H 07/15/20 20:13 C-Reactive Protein 1.10 mg/dL (0.00-1.30) 07/15/20 16:16 NT-Pro-B Natriuret Pep 702.5 pg/mL (0-900) 07/15/20 14:57 Total Protein 6.5 g/dL (6.3-8.2) 07/15/20 14:57 Albumin 2.8 g/dL (3.9-5) L 07/15/20 14:57 Albumin/Globulin Ratio 0.8 % 07/15/20 14:57 Triglycerides 45 mg/dL (2-149) 07/15/20 16:49 Cholesterol 53 mg/dL (50-199) 07/15/20 16:49 LDL Cholesterol Direct 11 mg/dL (50-130) L 07/15/20 16:49 HDL Cholesterol 31 mg/dL (40-59) L 07/15/20 16:49 Cholesterol/HDL Ratio 1.70 % 07/15/20 16:49 Short CBC 07/15/20 Range/Units 14:42 WBC 9.4 (4.5-11.0) K/mm3 Hgb 7.5 L (11.8-15.2) gm/dl Hct 21.9 L (35.5-45.6) % Plt Count 305 (140-440) K/mm3 BMP 07/15/20 07/15/20 07/16/20 14:42 16:16 04:28 Sodium 128 L 132 L Potassium 4.0 3.9 Chloride 98.9 101.1 Carbon Dioxide 20 L 19 L BUN 8 L 9 Creatinine 1.0 1.0 Glucose 380 H 320 H 144 H Calcium 8.5 8.8 Cardiac Enzymes 07/15/20 07/15/20 07/15/20 Range/Units 14:42 16:49 16:50 Total Creatine Kinase 101 (55-170) units/L CK-MB (CK-2) 2.7 (0.0-4.0) ng/mL Troponin T 0.056 H 0.057 H (0.00-0.029) ng/mL 07/15/20 07/15/20 07/16/20 Range/Units 20:13 21:35 04:28 Total Creatine Kinase 91 91 (55-170) units/L CK-MB (CK-2) 2.6 2.8 (0.0-4.0) ng/mL Troponin T 0.056 H 0.048 H 0.058 H D (0.00-0.029) ng/mL Liver Function 07/15/20 07/16/20 Range/Units 14:57 04:28 Total Bilirubin 1.30 H 1.40 H (0.1-1.2) mg/dL Direct Bilirubin 1.0 H (0-0.2) mg/dL AST 46 H 48 H (5-40) units/L ALT 21 20 (7-56) units/L Alkaline Phosphatase 171 H 173 H (35-129) units/L Albumin 2.8 L 2.7 L (3.9-5) g/dL Microbiology: Microbiology 07/15/20 Unknown Stool Stool Occult Blood (TOR) - Final - Imaging and Cardiology EKG: report reviewed Chest x-ray: report reviewed Assessment and Plan Advance Directives: Yes (Full code) VTE prophylaxis?: Chemical Plan of care discussed with patient/family: Yes - Patient Problems (1) ACS (acute coronary syndrome) Current Visit: Yes Status: Acute Plan to address problem: Chest pain w/u (2) GERD (gastroesophageal reflux disease) Current Visit: Yes Status: Chronic Qualifiers: Esophagitis presence: with esophagitis Plan to address problem: On PPI's (3) HLD (hyperlipidemia) Current Visit: Yes Status: Chronic Plan to address problem: Cont statins (4) IDDM (insulin dependent diabetes mellitus) Current Visit: Yes Status: Chronic Plan to address problem: Cont Insulin and coverage (5) HTN (hypertension) Current Visit: Yes Status: Chronic Qualifiers: Hypertension type: essential hypertension Qualified Code(s): I10 - Essential (primary) hypertension Plan to address problem: Cont antihypertensives (6) Symptomatic anemia Current Visit: Yes Status: Acute Plan to address problem: GI work-up (7) DVT prophylaxis Current Visit: Yes Status: Acute Plan to address problem: On Lovenox and GI prophylaxis
[2020-07-15] MEDS ORDERED: NITROGLYCERIN 0.3 MG SL PRN (21:19)
[2020-07-15] MEDS ORDERED: METOCLOPRAMIDE 10 MG/2 ML INJ IV PRN (21:24)
[2020-07-15] MEDS ORDERED: ONDANSETRON 4 MG/2 ML INJ IV PRN (21:24)
[2020-07-15] MEDS ORDERED: ACETAMINOPHEN 325 MG TAB PO PRN (21:24)
[2020-07-15] MEDS ORDERED: SODIUM CHLORIDE 0.9% 1000 ML 1,000 ML IV SCH (21:30)
[2020-07-15] MEDS ORDERED: FENOFIBRATE 150 MG PO SCH (21:30)
[2020-07-15] MEDS ORDERED: NITROGLYCERIN 0.4 MG TAB SUBL SL PRN (21:42)
[2020-07-15] MEDS ORDERED: [UNRECOGNIZED DRUG - OTHER] SQ SCH (22:00)
[2020-07-15] MEDS ORDERED: NON-FORMULARY EACH (Rosuvastatin Calcium [Crestor] 40 MG Tablet) PO SCH (22:00)
[2020-07-15] MEDS: INSULIN LISPRO 100 UNIT/ML SUB-Q SCH (22:06)
[2020-07-15] MEDS: NIFEdipine XL 60 MG TAB PO SCH (22:25)
[2020-07-15] MEDS: ASPIRIN EC 325 MG TAB PO SCH (22:26)
[2020-07-15] MEDS: hydrALAZINE 25 MG TAB PO SCH (22:26)
[2020-07-15] MEDS: INSULIN GLARGINE 100 UNITS/ML SUB-Q SCH (22:36)
[2020-07-15] MEDS: carvediloL 3.125 MG TAB PO SCH (22:36)
[2020-07-15 23:04] LABS: Creatine Kinase MB 2.6 ng/mL (0.0-4.0)
[2020-07-16] MEDS ORDERED: ALBUTEROL 8.5 GM MDI INHALATION IH PRN (00:34)
[2020-07-16] MEDS: hydrALAZINE 25 MG TAB PO SCH ×3 (05:09→21:35)
[2020-07-16 06:41] LABS: Creatine Kinase MB 2.8 ng/mL (0.0-4.0)
[2020-07-16 06:49] LABS: Alanine Aminotransferase 20 units/L (7-56); Albumin 2.7 g/dL (3.9-5); BUN/Creatinine Ratio 9; Blood Urea Nitrogen 9 mg/dL (9-20); Calcium 8.8 mg/dL (8.4-10.2); Hemolysis Index 0
[2020-07-16] MEDS: INSULIN LISPRO 100 UNIT/ML SUB-Q SCH ×6 (08:33→21:46)
[2020-07-16] MEDS ORDERED: NON-FORMULARY EACH (Omeprazole [Omeprazole] 40 MG Capsule.Dr) PO SCH (10:00)
[2020-07-16 10:13] LABS: Creatine Kinase MB 2.6 ng/mL (0.0-4.0)
[2020-07-16] MEDS: carvediloL 3.125 MG TAB PO SCH ×2 (11:30→21:37)
[2020-07-16] MEDS: NIFEdipine XL 60 MG TAB PO SCH (11:31)
[2020-07-16] MEDS: PANTOPRAZOLE 20 MG TAB PO SCH (11:32)
[2020-07-16] MEDS: FENOFIBRATE 145 MG TAB PO SCH (11:32)
[2020-07-16] MEDS: CLOPIDOGREL 75 MG TAB PO SCH (11:33)
[2020-07-16] MEDS: ASPIRIN EC 325 MG TAB PO SCH (11:48)
--- NOTE | 2020-07-16 12:07 | Consultation ---
History of Present Illness Consult date: 07/16/20 Consult reason: chest pain History of present illness: The patient is a 60-year-old man admitted with complaints of atypical, nonexe rtional chest pain. EKG is normal sinus rhythm with poor R wave progression, possible old anteroseptal infarct but no acute ischemic ST or T wave changes. Troponin levels were measured, and remained unchanged at 0.04-0 0.05 over five serial measurements. Chest x-ray was normal with normal size cardiac silhouette and clear lungs. He is admitted to the medical service, and under observation for COVID-19 infection, cardiology consultation for chest pain. The most significant finding on the patient's laboratory exam is a hematocrit of 21, severe anemia which has dropped significantly from a hematocrit of 35 on his previous presentation a year and a half ago. With regards to his cardiac history, there is history of coronary artery disease with a remote coronary stent located in the distal circumflex. Serial cardiac catheterizations in 2012, 2017 and again March 2019 all document a patent distal circumflex artery stent with no significant lesions in other coronary segments. 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 Left ventricular systolic ejection fraction has been normal to hyperdynamic at 65 to 70%. Past History Past Medical History: CAD, hypertension Medications and Allergies Allergies Allergy/AdvReac Type Severity Reaction Status Date / Time No Known Allergies Allergy Verified 10/27/14 18:16 Home Medications Medication Instructions Recorded Confirmed Last Taken Type Nitroglycerin (Nf) [Nitrostat] 0.4 mg SL Q5MIN PRN 09/30/16 07/15/20 1 Week Ago History ~03/23/19 Omeprazole 20 mg PO DAILY 09/30/16 07/15/20 03/29/19 History Clopidogrel Bisulfate [Plavix] 75 mg PO DAILY #30 tablet 10/05/16 07/15/20 03/29/19 Rx ISOSORBIDE MONOnitrate [Imdur ER] 120 mg PO QDAY #60 tablet 10/05/16 07/15/20 03/29/19 Rx Rosuvastatin Calcium [Crestor] 40 mg PO QHS #30 tablet 10/05/16 07/15/20 03/29/19 Rx hydrALAZINE [Apresoline TAB] 25 mg PO Q8HR #90 tablet 10/05/16 07/15/20 03/29/19 Rx Fenofibrate 200 mg PO DAILY 01/22/18 07/15/20 03/29/19 History Insulin Lispro [HumaLOG VIAL] 16 units SQ BID 01/22/18 07/15/20 03/29/19 History NIFEdipine XL [Procardia Xl] 60 mg PO QDAY 01/22/18 07/15/20 03/29/19 History carvediloL [Coreg] 3.125 mg PO BID 01/22/18 07/15/20 03/29/19 History Aspirin EC [Ecotrin] 325 mg PO DAILY 03/30/19 07/15/20 03/29/19 History Insulin Glargine,Hum.rec.anlog 40 units SQ HS 03/30/19 07/15/20 03/29/19 History [Chichi Weir] Active Meds: Active Medications Acetaminophen (Acetaminophen 325 Mg Tab) 650 mg PO Q4H PRN PRN Reason: Pain MILD(1-3)/Fever >100.5/LEUNG Last Admin: 07/16/20 00:38 Dose: 650 mg Documented by: Albuterol (Albuterol 8.5 Gm Mdi Inhalation) 2 puff IH Q4HRT PRN PRN Reason: Shortness Of Breath Last Admin: 07/16/20 01:00 Dose: 2 puff Documented by: Atorvastatin Calcium (Atorvastatin 40 Mg Tab) 80 mg PO QHS [facility] Last Admin: 07/15/20 22:25 Dose: 80 mg Documented by: Carvedilol (Carvedilol 3.125 Mg Tab) 3.125 mg PO BID [facility] Last Admin: 07/16/20 11:30 Dose: Not Given Documented by: Clopidogrel Bisulfate (Clopidogrel 75 Mg Tab) 75 mg PO DAILY [facility] Last Admin: 07/16/20 11:33 Dose: 75 mg Documented by: Fenofibrate (Fenofibrate 145 Mg Tab) 145 mg PO DAILY [facility] Last Admin: 07/16/20 11:32 Dose: 145 mg Documented by: Hydralazine HCl (Hydralazine 25 Mg Tab) 25 mg PO Q8HR [facility] Last Admin: 07/16/20 05:09 Dose: Not Given Documented by: Hydromorphone HCl (Hydromorphone 1 Mg/1 Ml Inj) 0.5 mg IV Q3H PRN PRN Reason: Pain , Severe (7-10) Sodium Chloride (Nacl 0.9% 1000 Ml) 1,000 mls @ 42 mls/hr IV DIRECT [facility] Insulin Glargine (Insulin Glargine 100 Units/Ml) 16 units SUB-Q QHS [facility] Last Admin: 07/15/20 22:36 Dose: Not Given Documented by: Insulin Human Lispro (Insulin Lispro 100 Unit/Ml) 16 unit SUB-Q BIDDIAB [facility] Last Admin: 07/16/20 11:45 Dose: 16 unit Documented by: Insulin Human Lispro (Insulin Lispro 100 Unit/Ml) 0 unit SUB-Q ACHS [facility]; Protocol Last Admin: 07/16/20 08:33 Dose: Not Given Documented by: Isosorbide Mononitrate (Isosorbide Mononitrate Er 60 Mg Tab) 120 mg PO QDAY [facility] Last Admin: 07/16/20 11:31 Dose: Not Given Documented by: Metoclopramide HCl (Metoclopramide 10 Mg/2 Ml Inj) 10 mg IV Q6H PRN PRN Reason: Nausea And Vomiting Nifedipine (Nifedipine Xl 60 Mg Tab) 60 mg PO QDAY [facility] Last Admin: 07/16/20 11:31 Dose: Not Given Documented by: Nitroglycerin (Nitroglycerin 0.4 Mg Tab Subl) 0.4 mg SL .Q5MIN PRN PRN Reason: Chest Pain Last Admin: 07/15/20 22:04 Dose: 0.4 mg Documented by: Ondansetron HCl (Ondansetron 4 Mg/2 Ml Inj) 4 mg IV Q8H PRN PRN Reason: Nausea And Vomiting Oxycodone/Acetaminophen (Oxycodone /Acetaminophen 5-325mg Tab) 1 tab PO Q6H PRN PRN Reason: Pain, Moderate (4-6) Pantoprazole Sodium (Pantoprazole 20 Mg Tab) 20 mg PO DAILY [facility] Last Admin: 07/16/20 11:32 Dose: 20 mg Documented by: Sodium Chloride (Sodium Chloride 0.9% 10 Ml Flush Syringe) 10 ml IV BID [facility] Last Admin: 07/16/20 11:46 Dose: Not Given Documented by: Sodium Chloride (Sodium Chloride 0.9% 10 Ml Flush Syringe) 10 ml IV PRN PRN PRN Reason: LINE FLUSH Review of Systems Cardiovascular: chest pain, no orthopnea, no palpitations, no rapid/irregular heart beat, no edema, no syncope, no lightheadedness, no shortness of breath Physical Examination Vital Signs Temp Pulse Resp BP Pulse Ox 98.4 F 105 H 20 153/60 100 07/15/20 14:29 07/15/20 14:29 07/15/20 14:29 07/15/20 14:29 07/15/20 14:29 Narrative exam: Full physical exam is deferred due to the patient's pending observation status for COVID-19 infection. General appearance: no acute distress Results 07/15/20 14:42 07/16/20 04:28 Cardiac Enzymes 07/15/20 07/15/20 07/15/20 Range/Units 14:57 16:16 16:50 AST 46 H (5-40) units/L Lactate Dehydrogenase 181 H (91-180) units/L CK-MB (CK-2) 2.7 (0.0-4.0) ng/mL 07/15/20 07/16/20 07/16/20 Range/Units 21:35 04:28 04:28 AST 48 H (5-40) units/L Lactate Dehydrogenase (91-180) units/L CK-MB (CK-2) 2.6 2.8 (0.0-4.0) ng/mL 07/16/20 Range/Units 09:31 AST (5-40) units/L Lactate Dehydrogenase (91-180) units/L CK-MB (CK-2) 2.6 (0.0-4.0) ng/mL Lipids 07/15/20 Range/Units 16:49 Triglycerides 45 (2-149) mg/dL Cholesterol 53 (50-199) mg/dL HDL Cholesterol 31 L (40-59) mg/dL Cholesterol/HDL Ratio 1.70 % CBC 07/15/20 Range/Units 14:42 WBC 9.4 (4.5-11.0) K/mm3 RBC 2.24 L (3.65-5.03) M/mm3 Hgb 7.5 L (11.8-15.2) gm/dl Hct 21.9 L (35.5-45.6) % Plt Count 305 (140-440) K/mm3 Lymph # (Auto) 2.2 (1.2-5.4) K/mm3 [place] # (Auto) 1.0 H (0.0-0.8) K/mm3 Eos # (Auto) 0.1 (0.0-0.4) K/mm3 Baso # (Auto) 0.0 (0.0-0.1) K/mm3 Comprehensive Metabolic Panel 07/15/20 07/15/20 07/15/20 Range/Units 14:42 14:57 16:16 Sodium 128 L (137-145) mmol/L Potassium 4.0 (3.6-5.0) mmol/L Chloride 98.9 (98-107) mmol/L Carbon Dioxide 20 L (22-30) mmol/L BUN 8 L (9-20) mg/dL Creatinine 1.0 (0.8-1.3) mg/dL Glucose 380 H 320 H (75-100) mg/dL Calcium 8.5 (8.4-10.2) mg/dL Direct Bilirubin 1.0 H (0-0.2) mg/dL Indirect Bilirubin 0.3 mg/dL AST 46 H (5-40) units/L ALT 21 (7-56) units/L Alkaline Phosphatase 171 H (35-129) units/L Total Protein 6.5 (6.3-8.2) g/dL Albumin 2.8 L (3.9-5) g/dL 07/16/20 Range/Units 04:28 Sodium 132 L (137-145) mmol/L Potassium 3.9 (3.6-5.0) mmol/L Chloride 101.1 (98-107) mmol/L Carbon Dioxide 19 L (22-30) mmol/L BUN 9 (9-20) mg/dL Creatinine 1.0 (0.8-1.3) mg/dL Glucose 144 H (75-100) mg/dL Calcium 8.8 (8.4-10.2) mg/dL Direct Bilirubin (0-0.2) mg/dL Indirect Bilirubin mg/dL AST 48 H (5-40) units/L ALT 20 (7-56) units/L Alkaline Phosphatase 173 H (35-129) units/L Total Protein 6.1 L (6.3-8.2) g/dL Albumin 2.7 L (3.9-5) g/dL EKG interpretations - Telemetry EKG Rhythm: Sinus Rhythm Assessment and Plan - Patient Problems (1) Chest pain Current Visit: Yes Status: Acute Plan to address problem: Chest pain is atypical, EKG is benign, borderline troponin levels are nondiagnostic. As reported, patient has had several serial cardiac catheterizations most recently a year and a half ago, documented patent single- vessel stent and no significant residual coronary lesions. Major finding on this presentation is a severe anemia with a hematocrit of 21, recommend work-up of anemia including assessment for possible peptic ulcer disease. I have placed a hold on the patient's aspirin pending your further work-up of the patient's presenting anemia.
[2020-07-16] MEDS ORDERED: SODIUM CHLORIDE 0.9% 500 ML 500 ML IV ONE ×2 (20:01→23:30)
--- NOTE | 2020-07-16 20:23 | Progress Note ---
Assessment and Plan - Patient Problems (1) ACS (acute coronary syndrome) Current Visit: Yes Status: Acute Plan to address problem: Chest pain w/u (2) GERD (gastroesophageal reflux disease) Current Visit: Yes Status: Chronic Qualifiers: Esophagitis presence: with esophagitis Plan to address problem: On PPI's (3) HLD (hyperlipidemia) Current Visit: Yes Status: Chronic Plan to address problem: Cont statins (4) IDDM (insulin dependent diabetes mellitus) Current Visit: Yes Status: Chronic Plan to address problem: Cont Insulin and coverage (5) HTN (hypertension) Current Visit: Yes Status: Chronic Qualifiers: Hypertension type: essential hypertension Qualified Code(s): I10 - Essential (primary) hypertension Plan to address problem: Cont antihypertensives (6) DVT prophylaxis Current Visit: Yes Status: Acute Plan to address problem: On Lovenox and GI prophylaxis Subjective Date of service: 07/16/20 Objective - Constitutional Vitals: Vital Signs - 12hr 07/16/20 07/16/20 07/16/20 10:51 11:30 11:31 Temperature 97.9 F Pulse Rate 101 H Respiratory 18 Rate Blood Pressure 111/46 111/46 111/46 O2 Sat by Pulse 100 Oximetry 07/16/20 07/16/20 13:40 15:39 Temperature 98.0 F Pulse Rate 101 H Respiratory 18 Rate Blood Pressure 120/44 101/33 O2 Sat by Pulse 100 Oximetry General appearance: Present: no acute distress, well-nourished - EENT Eyes: PERRL, EOM intact ENT: hearing intact, clear oral mucosa Ears: bilateral: normal - Neck Neck: supple, normal ROM - Respiratory Respiratory effort: normal Respiratory: bilateral: CTA - Breasts Breasts: normal - Cardiovascular Rhythm: regular Heart Sounds: Present: S1 & S2. Absent: gallop, rub Extremities: pulses intact, No edema, normal color, Full ROM - Gastrointestinal General gastrointestinal: Present: soft, non-tender, non-distended, normal bowel sounds - Genitourinary Male genitourinary: normal - Integumentary Integumentary: clear, warm, dry - Musculoskeletal Musculoskeletal: 1, strength equal bilaterally - Neurologic Neurologic: moves all extremities - Psychiatric Psychiatric: memory intact, appropriate mood/affect, intact judgment & insight - Labs CBC & Chem 7: 07/15/20 14:42 07/16/20 04:28 Labs: Abnormal lab results 07/15/20 07/15/20 07/15/20 Range/Units 20:13 21:35 21:48 Sodium (137-145) mmol/L Carbon Dioxide (22-30) mmol/L Glucose (75-100) mg/dL POC Glucose 233 H (70-105) mg/dL Hemoglobin A1c (4-6) % Total Bilirubin (0.1-1.2) mg/dL AST (5-40) units/L Alkaline Phosphatase (35-129) units/L Troponin T 0.056 H 0.048 H (0.00-0.029) ng/mL Total Protein (6.3-8.2) g/dL Albumin (3.9-5) g/dL 07/16/20 07/16/20 07/16/20 Range/Units 04:28 04:28 04:28 Sodium 132 L (137-145) mmol/L Carbon Dioxide 19 L (22-30) mmol/L Glucose 144 H (75-100) mg/dL POC Glucose (70-105) mg/dL Hemoglobin A1c 6.3 H (4-6) % Total Bilirubin 1.40 H (0.1-1.2) mg/dL AST 48 H (5-40) units/L Alkaline Phosphatase 173 H (35-129) units/L Troponin T 0.058 H D (0.00-0.029) ng/mL Total Protein 6.1 L (6.3-8.2) g/dL Albumin 2.7 L (3.9-5) g/dL 07/16/20 07/16/20 07/16/20 Range/Units 07:27 10:51 15:38 Sodium (137-145) mmol/L Carbon Dioxide (22-30) mmol/L Glucose (75-100) mg/dL POC Glucose 146 H 225 H 113 H (70-105) mg/dL Hemoglobin A1c (4-6) % Total Bilirubin (0.1-1.2) mg/dL AST (5-40) units/L Alkaline Phosphatase (35-129) units/L Troponin T (0.00-0.029) ng/mL Total Protein (6.3-8.2) g/dL Albumin (3.9-5) g/dL HEART Score - HEART Score EKG: Non-specific Age: 45-65 Risk factors: > 3 risk factors or hx of atherosclerotic disease Troponin: Troponin T 0.058 ng/mL (0.00-0.029) H D 07/16/20 04:28 Troponin: 1-3x normal limit - Critical Actions Critical Actions: 4-6 pts:12-16.6% risk of adverse cardiac event. Should be admitted
[2020-07-16] MEDS: INSULIN GLARGINE 100 UNITS/ML SUB-Q SCH (21:46)
[2020-07-16 22:18] LABS: % Iron Saturation 13.48 %
[2020-07-17] MEDS: guaiFENesin DM 200/20 MG ORAL LIQD 10 ML PO PRN (01:35)
[2020-07-17 06:37] LABS: Hematocrit 22.9 % (35.5-45.6); Hemoglobin 7.7 gm/dl (11.8-15.2)
[2020-07-17] MEDS: hydrALAZINE 25 MG TAB PO SCH ×3 (06:46→22:56)
[2020-07-17] MEDS: INSULIN LISPRO 100 UNIT/ML SUB-Q SCH ×6 (08:13→22:57)
[2020-07-17] MEDS: FENOFIBRATE 145 MG TAB PO SCH (10:14)
[2020-07-17] MEDS: NIFEdipine XL 60 MG TAB PO SCH (10:14)
[2020-07-17] MEDS: carvediloL 3.125 MG TAB PO SCH ×2 (10:15→22:56)
[2020-07-17] MEDS: CLOPIDOGREL 75 MG TAB PO SCH (10:16)
[2020-07-17] MEDS: PANTOPRAZOLE 20 MG TAB PO SCH (10:16)
--- NOTE | 2020-07-17 12:29 | Progress Note ---
Assessment and Plan - Patient Problems (1) Chest pain Current Visit: Yes Status: Acute Plan to address problem: Chest pain is atypical, EKG is benign, borderline troponin levels are nondiagnostic. As reported, patient has had several serial cardiac catheterizations most recently a year and a half ago, documented patent single- vessel stent and no significant residual coronary lesions. Major finding on this presentation is a severe anemia with a hematocrit of 21, recommend work-up of anemia including assessment for possible peptic ulcer disease. I have placed a hold on the patient's aspirin pending your further work-up of the patient's presenting anemia. No active cardiac issues, will follow intermittently. Subjective Date of service: 07/17/20 Interval history: Patient is comfortable, no cardiac complaints, no chest pain and no shortness of breath. Laboratory values show a persistent, severe anemia with a hematocrit of 21-22. Objective Vital Signs Temp Pulse Pulse Resp Resp BP Pulse Ox 07/17/20 11:36 97.1 F L 93 H 133/60 96 07/17/20 10:15 95 H 07/17/20 08:36 98.1 F 99 H 129/62 97 07/17/20 06:46 89 147/68 07/17/20 05:22 98.2 F 89 28 H 147/68 98 07/17/20 02:15 98.2 F 84 104/74 07/17/20 00:58 98.2 F 90 20 120/62 96 07/17/20 00:24 98.5 F 87 07/17/20 00:21 119/58 07/17/20 00:06 98.7 F 78 20 98 07/17/20 00:05 116/61 07/16/20 23:03 98.6 F 98 H 20 135/62 100 07/16/20 22:00 100 H 17 17 100 07/16/20 21:37 100 H 115/47 07/16/20 21:35 100 H 115/47 07/16/20 21:09 98.1 F 100 H 17 115/47 100 07/16/20 15:39 98.0 F 101 H 18 101/33 100 07/16/20 13:40 120/44 - Physical Examination General: No Apparent Distress HEENT: Positive: PERRL Neck: Positive: neck supple Cardiac: Positive: Reg Rate and Rhythm Lungs: Positive: Decreased Breath Sounds Neuro: Positive: Grossly Intact Abdomen: Positive: Soft Skin: Positive: Clear Extremities: Absent: edema - Labs and Meds CBC 07/17/20 Range/Units 05:58 Hgb 7.7 L (11.8-15.2) gm/dl Hct 22.9 L (35.5-45.6) % - Imaging and Cardiology EKG: report reviewed
[2020-07-17] MEDS: oxyCODONE /ACETAMINOPHEN 5-325MG TAB PO PRN (22:55)
[2020-07-17] MEDS: INSULIN GLARGINE 100 UNITS/ML SUB-Q SCH (22:58)
[2020-07-18] MEDS: hydrALAZINE 25 MG TAB PO SCH ×3 (05:31→22:01)
--- NOTE | 2020-07-18 07:21 | Progress Note ---
Assessment and Plan - Patient Problems (1) ACS (acute coronary syndrome) Current Visit: Yes Status: Acute Plan to address problem: Chest pain w/u (2) GERD (gastroesophageal reflux disease) Current Visit: Yes Status: Chronic Qualifiers: Esophagitis presence: with esophagitis Plan to address problem: On PPI's (3) HLD (hyperlipidemia) Current Visit: Yes Status: Chronic Plan to address problem: Cont statins (4) IDDM (insulin dependent diabetes mellitus) Current Visit: Yes Status: Chronic Plan to address problem: Cont Insulin and coverage (5) HTN (hypertension) Current Visit: Yes Status: Chronic Qualifiers: Hypertension type: essential hypertension Qualified Code(s): I10 - Essential (primary) hypertension Plan to address problem: Cont antihypertensives (6) DVT prophylaxis Current Visit: Yes Status: Acute Plan to address problem: On Lovenox and GI prophylaxis Subjective Date of service: 07/17/20 Objective - Constitutional Vitals: Vital Signs - 12hr 07/17/20 07/17/20 07/18/20 21:23 22:00 00:00 Temperature 98.1 F Pulse Rate 91 H Respiratory 20 17 Rate Respiratory 17 Rate [chest] Blood Pressure 125/64 O2 Sat by Pulse 98 100 Oximetry 07/18/20 07/18/20 00:16 04:31 Temperature 98.0 F 98.0 F Pulse Rate 92 H 92 H Respiratory 20 18 Rate Respiratory Rate [chest] Blood Pressure 130/65 122/61 O2 Sat by Pulse 100 98 Oximetry General appearance: Present: no acute distress, well-nourished - EENT Eyes: PERRL, EOM intact ENT: hearing intact, clear oral mucosa Ears: bilateral: normal - Neck Neck: supple, normal ROM - Respiratory Respiratory effort: normal Respiratory: bilateral: CTA - Breasts Breasts: normal - Cardiovascular Rhythm: regular Heart Sounds: Present: S1 & S2. Absent: gallop, rub Extremities: pulses intact, No edema, normal color, Full ROM - Gastrointestinal General gastrointestinal: Present: soft, non-tender, non-distended, normal bowel sounds - Genitourinary Male genitourinary: normal - Integumentary Integumentary: clear, warm, dry - Musculoskeletal Musculoskeletal: 1, strength equal bilaterally - Neurologic Neurologic: moves all extremities - Psychiatric Psychiatric: memory intact, appropriate mood/affect, intact judgment & insight - Labs CBC & Chem 7: 07/17/20 05:58 07/16/20 04:28 Labs: Abnormal lab results 07/17/20 07/17/20 07/17/20 Range/Units 07:34 11:38 15:25 POC Glucose 113 H 160 H 228 H (70-105) mg/dL HEART Score - HEART Score EKG: Non-specific Age: 45-65 Risk factors: > 3 risk factors or hx of atherosclerotic disease Troponin: Troponin T 0.058 ng/mL (0.00-0.029) H D 07/16/20 04:28 Troponin: 1-3x normal limit - Critical Actions Critical Actions: 4-6 pts:12-16.6% risk of adverse cardiac event. Should be admitted
[2020-07-18] MEDS: INSULIN LISPRO 100 UNIT/ML SUB-Q SCH ×6 (08:08→22:00)
--- NOTE | 2020-07-18 09:28 | Progress Note ---
Assessment and Plan - Patient Problems (1) Chest pain Current Visit: Yes Status: Acute Plan to address problem: Chest pain is atypical, EKG is benign, borderline troponin levels are nondiagnostic. As reported, patient has had several serial cardiac catheterizations most recently a year and a half ago, documented patent single- vessel stent and no significant residual coronary lesions. Major finding on this presentation is a severe anemia with a hematocrit of 21, recommend work-up of anemia including assessment for possible peptic ulcer disease. I have placed a hold on the patient's aspirin pending your further work-up of the patient's presenting anemia. No active cardiac issues, will follow intermittently. Subjective Date of service: 07/18/20 Interval history: Patient is comfortably no acute distress. Looks and feels better, no new cardiac complaints. Objective Vital Signs Temp Pulse Resp Resp BP Pulse Ox 07/18/20 04:31 98.0 F 92 H 18 122/61 98 07/18/20 00:16 98.0 F 92 H 20 130/65 100 07/18/20 00:00 17 100 07/17/20 22:00 17 07/17/20 21:23 98.1 F 91 H 20 125/64 98 07/17/20 15:21 98.0 F 90 108/49 96 07/17/20 12:00 97 07/17/20 11:36 97.1 F L 93 H 133/60 96 07/17/20 10:15 95 H - Physical Examination General: No Apparent Distress HEENT: Positive: PERRL Neck: Positive: neck supple Cardiac: Positive: Reg Rate and Rhythm Lungs: Positive: Decreased Breath Sounds Neuro: Positive: Grossly Intact Abdomen: Positive: Soft Skin: Positive: Clear Extremities: Absent: edema - Imaging and Cardiology EKG: report reviewed
[2020-07-18] MEDS: carvediloL 3.125 MG TAB PO SCH ×2 (11:11→22:01)
[2020-07-18] MEDS: CLOPIDOGREL 75 MG TAB PO SCH (11:12)
[2020-07-18] MEDS: NIFEdipine XL 60 MG TAB PO SCH (11:13)
[2020-07-18] MEDS: PANTOPRAZOLE 20 MG TAB PO SCH (11:13)
[2020-07-18] MEDS: FENOFIBRATE 145 MG TAB PO SCH (11:13)
--- NOTE | 2020-07-18 13:03 | Gastroenterology Consultation ---
History of Present Illness - Reason for Consult Consult date: 07/18/20 anemia Requesting physician: SUSIE AGUIRRE - History of Present Illness This is a 60 yo male with pmh of CAD (h/o stents), CHF, DM, HTN, and anemia admitted on 07/15/2020 for chest pain. GI consulted for anemia work up. Patient denies any blood in the stools, melena, or abdominal pain. No BM today. States he has had weight loss for the past several months and loss of appetite. He had EGD and colonoscopy in 05/2019 with [facility]. EGD showed mild gastritis (path negative for HP) and colonoscopy showed diffuse diverticulosis and a small TA polyp removed. Today, he reports continued chest pain and fatigue along with dyspnea with exertion. Medication list reviewed. Past History Past Medical History: CAD, hypertension Medications and Allergies Allergies Allergy/AdvReac Type Severity Reaction Status Date / Time No Known Allergies Allergy Verified 10/27/14 18:16 Home Medications Medication Instructions Recorded Confirmed Last Taken Type Nitroglycerin (Nf) [Nitrostat] 0.4 mg SL Q5MIN PRN 09/30/16 07/15/20 1 Week Ago History ~03/23/19 Omeprazole 20 mg PO DAILY 09/30/16 07/15/20 03/29/19 History Clopidogrel Bisulfate [Plavix] 75 mg PO DAILY #30 tablet 10/05/16 07/15/20 03/29/19 Rx ISOSORBIDE MONOnitrate [Imdur ER] 120 mg PO QDAY #60 tablet 10/05/16 07/15/20 03/29/19 Rx Rosuvastatin Calcium [Crestor] 40 mg PO QHS #30 tablet 10/05/16 07/15/20 03/29/19 Rx hydrALAZINE [Apresoline TAB] 25 mg PO Q8HR #90 tablet 10/05/16 07/15/20 03/29/19 Rx Fenofibrate 200 mg PO DAILY 01/22/18 07/15/20 03/29/19 History Insulin Lispro [HumaLOG VIAL] 16 units SQ BID 01/22/18 07/15/20 03/29/19 History NIFEdipine XL [Procardia Xl] 60 mg PO QDAY 01/22/18 07/15/20 03/29/19 History carvediloL [Coreg] 3.125 mg PO BID 01/22/18 07/15/20 03/29/19 History Aspirin EC [Ecotrin] 325 mg PO DAILY 03/30/19 07/15/20 03/29/19 History Insulin Glargine,Hum.rec.anlog 40 units SQ HS 03/30/19 07/15/20 03/29/19 History [[facility] [place]] Active Meds: Active Medications Acetaminophen (Acetaminophen 325 Mg Tab) 650 mg PO Q4H PRN PRN Reason: Pain MILD(1-3)/Fever >100.5/LEUNG Last Admin: 07/16/20 00:38 Dose: 650 mg Documented by: Albuterol (Albuterol 8.5 Gm Mdi Inhalation) 2 puff IH Q4HRT PRN PRN Reason: Shortness Of Breath Last Admin: 07/16/20 01:00 Dose: 2 puff Documented by: Atorvastatin Calcium (Atorvastatin 40 Mg Tab) 80 mg PO QHS [facility] Last Admin: 07/17/20 22:56 Dose: 80 mg Documented by: Carvedilol (Carvedilol 3.125 Mg Tab) 3.125 mg PO BID [facility] Last Admin: 07/17/20 22:56 Dose: 3.125 mg Documented by: Clopidogrel Bisulfate (Clopidogrel 75 Mg Tab) 75 mg PO DAILY [facility] Last Admin: 07/17/20 10:16 Dose: 75 mg Documented by: Fenofibrate (Fenofibrate 145 Mg Tab) 145 mg PO DAILY [facility] Last Admin: 07/17/20 10:14 Dose: 145 mg Documented by: Guaifenesin (Guaifenesin Dm 200/20 Mg Oral Liqd 10 Ml) 10 ml PO Q4H PRN PRN Reason: Cough Last Admin: 07/17/20 01:35 Dose: 10 ml Documented by: Hydralazine HCl (Hydralazine 25 Mg Tab) 25 mg PO Q8HR [facility] Last Admin: 07/18/20 05:31 Dose: 25 mg Documented by: Hydromorphone HCl (Hydromorphone 1 Mg/1 Ml Inj) 0.5 mg IV Q3H PRN PRN Reason: Pain , Severe (7-10) Sodium Chloride (Nacl 0.9% 1000 Ml) 1,000 mls @ 42 mls/hr IV DIRECT [facility] Last Admin: 07/18/20 05:42 Dose: 42 mls/hr Documented by: Insulin Glargine (Insulin Glargine 100 Units/Ml) 16 units SUB-Q QHS [facility] Last Admin: 07/17/20 22:58 Dose: 16 units Documented by: Insulin Human Lispro (Insulin Lispro 100 Unit/Ml) 16 unit SUB-Q BIDDIAB [facility] Last Admin: 07/17/20 17:00 Dose: 16 unit Documented by: Insulin Human Lispro (Insulin Lispro 100 Unit/Ml) 0 unit SUB-Q ACHS [facility]; Protocol Last Admin: 07/18/20 08:08 Dose: Not Given Documented by: Isosorbide Mononitrate (Isosorbide Mononitrate Er 60 Mg Tab) 120 mg PO QDAY [facility] Last Admin: 07/17/20 10:14 Dose: 120 mg Documented by: Metoclopramide HCl (Metoclopramide 10 Mg/2 Ml Inj) 10 mg IV Q6H PRN PRN Reason: Nausea And Vomiting Nifedipine (Nifedipine Xl 60 Mg Tab) 60 mg PO QDAY [facility] Last Admin: 07/17/20 10:14 Dose: 60 mg Documented by: Nitroglycerin (Nitroglycerin 0.4 Mg Tab Subl) 0.4 mg SL .Q5MIN PRN PRN Reason: Chest Pain Last Admin: 07/15/20 22:04 Dose: 0.4 mg Documented by: Ondansetron HCl (Ondansetron 4 Mg/2 Ml Inj) 4 mg IV Q8H PRN PRN Reason: Nausea And Vomiting Oxycodone/Acetaminophen (Oxycodone /Acetaminophen 5-325mg Tab) 1 tab PO Q6H PRN PRN Reason: Pain, Moderate (4-6) Last Admin: 07/17/20 22:55 Dose: 1 tab Documented by: Pantoprazole Sodium (Pantoprazole 20 Mg Tab) 20 mg PO DAILY [facility] Last Admin: 07/17/20 10:16 Dose: 20 mg Documented by: Sodium Chloride (Sodium Chloride 0.9% 10 Ml Flush Syringe) 10 ml IV BID [facility] Last Admin: 07/17/20 22:58 Dose: 10 ml Documented by: Sodium Chloride (Sodium Chloride 0.9% 10 Ml Flush Syringe) 10 ml IV PRN PRN PRN Reason: LINE FLUSH Review of Systems - Review of Systems All systems: negative Constitutional: weight loss, no fever, no chills Eyes: no change in vision Ears, Nose, Throat: no decreased hearing Cardiovascular: chest pain Gastrointestinal: loss of appetite, no abdominal pain, no nausea, no vomiting, no diarrhea, no constipation, no BRBPR, no melena, no hematochezia Neurological: no head injury Psychiatric: no anxiety Endocrine: no cold intolerance Hematologic/Lymphatic: no easy bruising Exam - Constitutional Vital Signs: Temp Pulse Resp BP Pulse Ox 98.0 F 92 H 18 122/61 98 07/18/20 04:31 07/18/20 04:31 07/18/20 04:31 07/18/20 04:31 07/18/20 04:31 General appearance: no acute distress - EENT ENT: hearing intact - Respiratory Respiratory effort: normal - Cardiovascular Rhythm: regular Heart Sounds: Present: S1 & S2 - Gastrointestinal General gastrointestinal: Present: soft, non-tender, non-distended, normal bowel sounds - Neurologic Neurological: alert and oriented x3 - Labs CBC & Chem 7: 07/17/20 05:58 07/16/20 04:28 Lab Results: Laboratory Results - last 24 hr 07/17/20 07/17/20 07/18/20 15:25 21:03 07:25 POC Glucose 228 H 78 135 H Assessment and Plan # Iron deficiency anemia - Most prior labs in system with Hgb at 12 in 03/2019. It would be helpful to obtain outpatient records of labs in 2019. - Hgb down to 7 on admission and stable overnight. - no overt signs of GI bleeding. - EGD and colonoscopy in 05/2019 with [facility]. EGD showed mild gastritis (path negative for HP) and colonoscopy showed diffuse diverticulosis and a small TA polyp removed. - given EGD/colonoscopy about 1 year ago without a source of bleeding and no signs of overt GI bleeding at this time, unlikely to have developed a GI bleeding source in upper and lower GI tract. Other possible source is occult small bowel bleeding source. recommend outpatient work up with [facility] endoscopy vs repeat EGD/colonoscopy off plavix for 5 days. - recommend hematology work up as well - cont with omeprazole for gastritis.
[2020-07-18] MEDS: INSULIN GLARGINE 100 UNITS/ML SUB-Q SCH (22:00)
[2020-07-19] MEDS: guaiFENesin DM 200/20 MG ORAL LIQD 10 ML PO PRN (00:52)
[2020-07-19] MEDS: HYDROmorphone 1 MG/1 ML INJ IV PRN (03:29)
[2020-07-19] MEDS: hydrALAZINE 25 MG TAB PO SCH ×3 (06:18→21:52)
[2020-07-19] MEDS: INSULIN LISPRO 100 UNIT/ML SUB-Q SCH ×5 (08:00→22:00)
[2020-07-19] MEDS: PANTOPRAZOLE 20 MG TAB PO SCH (10:58)
[2020-07-19] MEDS: NIFEdipine XL 60 MG TAB PO SCH (10:58)
[2020-07-19] MEDS: CLOPIDOGREL 75 MG TAB PO SCH (10:58)
[2020-07-19] MEDS: carvediloL 3.125 MG TAB PO SCH ×2 (10:58→21:51)
[2020-07-19] MEDS: FENOFIBRATE 145 MG TAB PO SCH (10:58)
--- NOTE | 2020-07-19 11:34 | Gastroenterology Progress Note ---
Assessment and Plan # Iron deficiency anemia - Most prior labs in system with Hgb at 12 in 03/2019. It would be helpful to obtain outpatient records of labs in 2020. - Hgb down to 7 on admission and stable overnight. - no overt signs of GI bleeding. - EGD and colonoscopy in 05/2019 with [facility]. EGD showed mild gastritis (path negative for HP) and colonoscopy showed diffuse diverticulosis and a small TA polyp removed. - recommend hematology work up as well - cont with omeprazole for gastritis. - patient complaining of abdominal pain and nausea. Anemia is new change and as far on our system, last Hgb was at 12 in 03/2019. Although less likely to have active bleeding or new source of GI bleeding since last endoscopy, given new onset of anemia and abdominal pain, will plan for EGD and colonoscopy tomorrow. Hold plavix/ASA. NPO MN. Golytely prep. Subjective Date of service: 07/19/20 Interval history: patient reports upper abdominal pain. Mild nausea but no vomiting. Reports he was not anemic in the past and thinks this is new change. He was told by nursing that he had blood in the stools over the weekend. Objective - Constitutional Vitals: Temp Pulse Resp BP Pulse Ox 98.1 F 97 H 18 131/61 98 07/19/20 08:23 07/19/20 08:23 07/19/20 08:23 07/19/20 08:23 07/19/20 08:23 General appearance: no acute distress - EENT ENT: hearing intact - Respiratory Respiratory effort: normal - Cardiovascular Rhythm: regular Heart Sounds: Present: S1 & S2 - Gastrointestinal General gastrointestinal: Present: soft, non-tender, non-distended, normal bowel sounds - Neurologic Neurological: alert and oriented x3 - Labs CBC & Chem 7: 07/17/20 05:58 07/16/20 04:28 Labs: Laboratory Results - last 24 hr 07/18/20 07/18/20 07/18/20 13:39 16:15 20:54 POC Glucose 182 H 175 H 146 H 07/19/20 07:27 POC Glucose 162 H
--- NOTE | 2020-07-19 11:35 | Progress Note ---
Assessment and Plan Atypical chest pain Hx of CAD patient has had several serial cardiac catheterizations most recently in 2019,that showed patent single-vessel stent and no significant residual coronary lesions. LVEF normal to hyperdynamic at 65-70%. Severe anemia with a hematocrit of 21 Recommendations Continue medical therapy for coronary artery disease. Aspirin placed on hold pending further work-up of the patient's presenting anemia. Otherwise, conservative cardiac management. Will follow intermittently. Subjective Date of service: 07/19/20 Interval history: Patient complains of generalized weakness and SOB with minimal exertion. No distress noted. Objective Vital Signs Temp Pulse Resp BP BP Pulse Ox 07/19/20 08:23 98.1 F 97 H 18 131/61 98 07/19/20 06:18 96 H 128/67 07/19/20 04:27 98.2 F 96 H 16 128/67 98 07/18/20 23:37 98.2 F 98 H 17 135/67 97 07/18/20 22:01 96 H 138/70 07/18/20 20:23 98.1 F 96 H 17 138/70 96 07/18/20 16:24 98.6 F 93 H 133/71 07/18/20 13:41 98.3 F 93 H 18 140/67 95 07/18/20 12:00 20 95 - Physical Examination General: No Apparent Distress HEENT: Positive: PERRL Neck: Positive: neck supple Cardiac: Positive: Reg Rate and Rhythm Lungs: Positive: Decreased Breath Sounds Neuro: Positive: Grossly Intact Abdomen: Positive: Soft Extremities: Absent: edema
[2020-07-19] MEDS ORDERED: POLYETHYLENE GLYCOL/ELECT SOLN 4000 ML PO NR (15:00)
--- NOTE | 2020-07-19 18:19 | Progress Note ---
Assessment and Plan - Patient Problems (1) Symptomatic anemia Current Visit: Yes Status: Acute Plan to address problem: For EGD and colonoscopy in a.m. (2) ACS (acute coronary syndrome) Current Visit: Yes Status: Acute Plan to address problem: Chest pain w/u (3) GERD (gastroesophageal reflux disease) Current Visit: Yes Status: Chronic Qualifiers: Esophagitis presence: with esophagitis Plan to address problem: On PPI's (4) HLD (hyperlipidemia) Current Visit: Yes Status: Chronic Plan to address problem: Cont statins (5) IDDM (insulin dependent diabetes mellitus) Current Visit: Yes Status: Chronic Plan to address problem: Cont Insulin and coverage (6) HTN (hypertension) Current Visit: Yes Status: Chronic Qualifiers: Hypertension type: essential hypertension Qualified Code(s): I10 - Essential (primary) hypertension Plan to address problem: Cont antihypertensives (7) DVT prophylaxis Current Visit: Yes Status: Acute Plan to address problem: On Lovenox and GI prophylaxis Subjective Date of service: 07/19/20 Principal diagnosis: Symptomatic anemia, acute coronary syndrome Interval history: 60-year old male with a past medical history of CAD with 4 stents, CHF, diabetes, hypertension, and recent diagnosis of anemia presents to the hospital complaints of chest pain since 6:30 AM. Pain is substernal and left-sided radiating to both arms. Pain is described as a constant pressure with associated shortness of breath. He denies nausea, vomiting, or diaphoresis. Patient states pain was 7/10 intensity. He received nitroglycerin x2 and aspirin 325 mg in route and pain decreased to 4/10. Patient states he is currently awaiting Covid test results. Covid test was collected by the health department yesterday. He reports a positive Covid exposure, cough, and recent loss of taste or smell that is "just starting to come back". Patient also reports that he was recent diagnosed with anemia and did not have blood in his stools. His PMD is in the process of making outpatient arrangements with a utility agent. Patient reports compliance with his medications including aspirin and Plavix Severity scale (0 -10): 6 07/19/2020 For EGD and colonoscopy in a.m. tomorrow Objective - Constitutional Vitals: Vital Signs - 12hr 07/19/20 07/19/20 07/19/20 08:23 12:27 16:41 Temperature 98.1 F 98.9 F 97.9 F Pulse Rate 97 H 96 H 94 H Respiratory 18 20 18 Rate Blood Pressure 131/61 126/55 126/59 O2 Sat by Pulse 98 98 99 Oximetry General appearance: Present: no acute distress, well-nourished - EENT Eyes: PERRL, EOM intact ENT: hearing intact, clear oral mucosa Ears: bilateral: normal - Neck Neck: supple, normal ROM - Respiratory Respiratory effort: normal Respiratory: bilateral: CTA - Breasts Breasts: normal - Cardiovascular Rhythm: regular Heart Sounds: Present: S1 & S2. Absent: gallop, rub Extremities: pulses intact, No edema, normal color, Full ROM - Gastrointestinal General gastrointestinal: Present: soft, non-tender, non-distended, normal bowel sounds - Genitourinary Male genitourinary: normal - Integumentary Integumentary: clear, warm, dry - Musculoskeletal Musculoskeletal: 1, strength equal bilaterally - Neurologic Neurologic: moves all extremities - Psychiatric Psychiatric: memory intact, appropriate mood/affect, intact judgment & insight - Labs CBC & Chem 7: 07/20/20 05:07 07/16/20 04:28 Labs: Abnormal lab results 07/18/20 07/18/20 07/19/20 Range/Units 16:15 20:54 07:27 POC Glucose 175 H 146 H 162 H (70-105) mg/dL 07/19/20 Range/Units 11:31 POC Glucose 157 H (70-105) mg/dL HEART Score - HEART Score EKG: Non-specific Age: 45-65 Risk factors: > 3 risk factors or hx of atherosclerotic disease Troponin: Troponin T 0.058 ng/mL (0.00-0.029) H D 07/16/20 04:28 Troponin: 1-3x normal limit - Critical Actions Critical Actions: 4-6 pts:12-16.6% risk of adverse cardiac event. Should be admitted
[2020-07-19] MEDS: INSULIN GLARGINE 100 UNITS/ML SUB-Q SCH (21:52)
[2020-07-20] MEDS: hydrALAZINE 25 MG TAB PO SCH ×3 (05:03→21:14)
[2020-07-20 06:02] LABS: Hemoglobin 7.3 gm/dl (11.8-15.2); Mean Corpuscular HGB Conc 35 % (32-34); Mean Corpuscular Volume 96 fl (84-94); Platelet Count 218 K/mm3 (140-440); Red Blood Count 2.19 M/mm3 (3.65-5.03); Red Cell Distribution Width 16.2 % (13.2-15.2)
[2020-07-20] MEDS: INSULIN LISPRO 100 UNIT/ML SUB-Q SCH ×3 (09:33→17:42)
[2020-07-20] MEDS ORDERED: WATER FOR IRRIG STERILE 1,000 ML BOTTLE ONE (09:57)
[2020-07-20] MEDS ORDERED: SODIUM CHLORIDE 0.9% 1000 ML 1,000 ML IV SCH (10:00)
--- NOTE | 2020-07-20 10:08 | Anesthesia Consultation ---
Anesthesia Consult and Med Hx Date of service: 07/20/20 - Airway Anesthetic Teeth Evaluation: Poor ROM Head & Neck: Adequate Mental/Hyoid Distance: Adequate Mallampati Class: Class II Intubation Access Assessment: Probably Good - Pulmonary Exam CTA: Yes - Cardiac Exam Cardiac Exam: RRR - Pre-Operative Health Status ASA Pre-Surgery Classification: ASA3 Proposed Anesthetic Plan: MAC - Pulmonary Hx Smoking: Yes (former smoker) Hx Respiratory Symptoms: Yes (chronic 2 pillow orthopnea; normal EF in 2019 per cardiology notes) SOB: Yes (COVID neg this admission) Home Oxygen Therapy: No - Cardiovascular System Hx Hypertension: Yes Hx Coronary Artery Disease: Yes Hx Heart Attack/AMI: Yes (remote hx) Hx Percutaneous Transluminal Coronary Angioplasty (PTCA): Yes (x1; last dose plavix 07/19/20) Hx Cardia Arrhythmia: No Hx Peripheral Vascular Disease: No - Central Nervous System CVA: No - Endocrine Hx Renal Disease: No Hx Liver Disease: No Hx Insulin Dependent Diabetes: No Hx Non-Insulin Dependent Diabetes: No Hx Thyroid Disease: No - Hematic Hx Anemia: Yes - Other Systems Hx Obesity: No - Additional Comments Anesthesia Medical History Comments: EGD/colonoscopy for anemia eval.
--- NOTE | 2020-07-20 10:09 | Anesthesia Day of Surgery ---
Anesthesia Day of Surgery - Day of Surgery Patient Examined: Yes Patient H&P Reviewed: Yes Patient is NPO: Yes Cardiac Clearance: Yes
[2020-07-20] MEDS ORDERED: propofoL 200 MG/20 ML VIAL IV ONE ×2 (10:43)
[2020-07-20] MEDS ORDERED: LIDOCAINE MPF (2%) 20 MG/1 ML VIAL 5 ML ONE (10:43)
--- NOTE | 2020-07-20 10:54 | Progress Note ---
Assessment and Plan Atypical chest pain Hx of CAD patient has had several serial cardiac catheterizations most recently in 2019,that showed patent single-vessel stent and no significant residual coronary lesions. LVEF normal to hyperdynamic at 65-70%. Severe anemia with a hematocrit of 21 Recommendations Continue medical therapy for coronary artery disease. Aspirin placed on hold pending further work-up of the patient's presenting anemia. Otherwise, conservative cardiac management. Will follow intermittently. Subjective Date of service: 07/20/20 Principal diagnosis: Symptomatic anemia, acute coronary syndrome Interval history: No cardiac complaints. Planned for GI endoscopy today. Objective Vital Signs Temp Pulse Resp BP BP Pulse Ox 07/20/20 08:00 98.2 F 88 18 128/60 99 07/20/20 05:03 90 136/66 07/20/20 04:00 97.4 F L 90 14 136/66 98 07/19/20 22:56 97.8 F 91 H 16 140/68 100 07/19/20 21:52 92 H 120/47 07/19/20 21:51 92 H 120/47 07/19/20 20:00 97.3 F L 92 H 16 120/47 100 07/19/20 16:41 97.9 F 94 H 18 126/59 99 07/19/20 12:27 98.9 F 96 H 20 126/55 98 - Physical Examination General: No Apparent Distress HEENT: Positive: PERRL Neck: Positive: neck supple Cardiac: Positive: Reg Rate and Rhythm Lungs: Positive: Decreased Breath Sounds Neuro: Positive: Grossly Intact Extremities: Absent: edema - Labs and Meds CBC 07/20/20 Range/Units 05:07 WBC 8.5 (4.5-11.0) K/mm3 RBC 2.19 L (3.65-5.03) M/mm3 Hgb 7.3 L (11.8-15.2) gm/dl Hct 21.0 L (35.5-45.6) % Plt Count 218 (140-440) K/mm3
[2020-07-20] MEDS ORDERED: ePHEDrine SULFATE 50 MG/1 ML INJ ONE (11:19)
--- NOTE | 2020-07-20 11:32 | Operative Report ---
Operative Report Operative Report: Date:07/20/2020 Pre procedure diagnosis:Abdominal pain, iron deficiency anemia Post procedure diagnosis:mild atrophic gastritis, hiatal hernia, nonobstructing esophageal ring Procedure: Esophagogastroduodenoscopy Endoscopist: Teja Quintanilla MD Medications: Per anesthesia- see separate records for details Complications:none Estimated blood loss: None After careful discussion of the nature and purpose of the procedure, details of the technique, risks, benefits and alternatives, the patient gave consent. The patient was placed in the left lateral decubitus position and medicated by anesthesia- see separate records for details. The tip of the olympus video upper scope was passed per orum under direct view through the mouth and into the esophagus, stomach and duodenum. The scope was advanced to the secondportion of the duodenum without difficulty. The second portion of the duodenumwasnormal. The bulb revealed normal findings. The scope was withdrawn back into the stomach and the stomach gently insufflated with air. The antrum and gastric body showed mild atrophy appearing mucosa. No ulcers or erosions noted for bleeding source. The scope was then retroflexed and partially withdrawn to inspect the proximal stomach. The cardia and fundus were normal. The scope was then withdrawn in the forward view. The EG junction was at 40.Thedistal esophagus showed a small hiatal hernia and a nonobstructing esophageal ring. Otherwise, normal exam. The procedure was well tolerated and the patient was observed in the GI recovery unit. IMPRESSION: 1. Mild atrophic appearing mucosa in the antrum and gastric body. 2. Normal duodenum exam. 3. A small hiatal hernia and a nonobstructing esophageal ring. 4. Biospies not obtained given recent plavix use and EGD in 05/2019 with negative biospies. Plan: 1. Proceed with colonoscopy. Teja Quintanilla MD (Jenny) [facility]
--- NOTE | 2020-07-20 11:36 | Operative Report ---
Operative Report Operative Report: Colonoscopy: Procedure: Colonoscopy Endoscopist: Teja Quintanilla MD Pre-operative Diagnosis/Indications:iron deficiency anemia, weight loss Post-operative Diagnosis:pandiverticulosis, internal hemorrhoids. History:See consult note Sedation:MAC Procedure Details: Indications, risks, and benefits were explained and consent was obtained. Pt was placed in the left lateral decubitus position and sedated. Video colonoscope was inserted thru the anus after digital exam, and advanced to the cecum withoutdifficulty. Scope was then gradually withdrawn with close inspection of the mucosa. Prep was fair. Findings: 1. Scattered multiple small and large diverticula in right and left colon. 2. Mild nonbleeding internal hemorrhoids. 3. No source of bleeding noted. Specimens:none Complications:None; patient tolerated the procedure well. Disposition:Recover in the GI unit and transfer to the floor. Impression: 1. Pandiverticulosis 2. Mild internal hemorrhoids. 3. No source of bleeding or weight loss identified. Recommendations: 1. Resume diet. 2. Monitor H/H. 3. Recommend outpatient work up with [facility] endoscopy. Patient follows with Dr. No [facility]. 4. Recommend CT abdominal imaging for weight loss evaluation. either inpatient vs outpatient. 5. Will sign off. please call with questions. Teja Kennedy (Itzel) MD [facility]
[2020-07-20] MEDS ORDERED: DEXTROSE 50% IN WATER (25GM) 50 ML SYRINGE IV ONE ×2 (11:44→11:45)
--- NOTE | 2020-07-20 13:48 | Post Anesthesia Evaluation ---
- Post Anesthesia Evaluation Patient Participated: Yes Airway Patent: Yes Stable Respiratory Function: Yes Nausea/Vomiting: No Temp > 96.8F: Yes Pain Manageable: Yes Adequeate Hydration: Yes Anesthesia Complications: No Other Comments: received 1/2amp D50 for BG 60s while in PACU.
[2020-07-20] MEDS: carvediloL 3.125 MG TAB PO SCH ×2 (14:07→21:14)
--- NOTE | 2020-07-20 14:07 | Progress Note ---
Assessment and Plan (1) Symptomatic anemia Current Visit: Yes Status: Acute Plan to address problem: For EGD and colonoscopy in a.m. (2) ACS (acute coronary syndrome) Current Visit: Yes Status: Acute Plan to address problem: Chest pain w/u (3) GERD (gastroesophageal reflux disease) Current Visit: Yes Status: Chronic Qualifiers: Esophagitis presence: with esophagitis Plan to address problem: On PPI's (4) HLD (hyperlipidemia) Current Visit: Yes Status: Chronic Plan to address problem: Cont statins (5) IDDM (insulin dependent diabetes mellitus) Current Visit: Yes Status: Chronic Plan to address problem: Cont Insulin and coverage (6) HTN (hypertension) Current Visit: Yes Status: Chronic Qualifiers: Hypertension type: essential hypertension Qualified Code(s): I10 - Essential (primary) hypertension Plan to address problem: Cont antihypertensives (7) DVT prophylaxis Current Visit: Yes Status: Acute Plan to address problem: On Lovenox and GI prophylaxis Brief History 60-year old male with a past medical history of CAD with 4 stents, CHF, diabetes, hypertension, and recent diagnosis of anemia presents to the hospital complaints of chest pain since 6:30 AM. Pain is substernal and left-sided radiating to both arms. Pain is described as a constant pressure with associated shortness of breath. He denies nausea, vomiting, or diaphoresis. Patient states pain was 7/10 intensity. He received nitroglycerin x2 and aspirin 325 mg in route and pain decreased to 4/10. Patient states he is currently awaiting Covid test results. Covid test was collected by the health department yesterday. He reports a positive Covid exposure, cough, and recent loss of taste or smell that is "just starting to come back". Patient also reports that he was recent diagnosed with anemia and did not have blood in his stools. His PMD is in the process of making outpatient arrangements with a nurse midwife. Patient reports compliance with his medications including aspirin and Plavix Severity scale (0 -10): 6 07/19/2020 For EGD and colonoscopy in a.m. tomorrow 07/20/20 Patient had EGD and colonoscopy today with normal findings. GI recommended to p zen with CT abdomen pelvis with contrast. If CT abdomen pelvis findings are normal and patient need capsule endoscopy as outpatient. We will continue to monitor H&H, will follow CT abdomen pelvis finding. If H&H remains stable and CT abdomen pelvis is normal patient will be discharged home Subjective Date of service: 07/20/20 Principal diagnosis: Symptomatic anemia, acute coronary syndrome Interval history: Patient seen and examined. Medical records and medication list reviewed. No acute event overnight noted by the RN. Patient denies any chest pain or difficulty breathing. Patient is tolerating diet. Discussed plan of care at bedside with patient. Status post EGD and colonoscopy today Objective - Exam Narrative Exam: General appearance: Present: no acute distress, well-nourished - EENT Eyes: PERRL, EOM intact ENT: hearing intact, clear oral mucosa Ears: bilateral: normal - Neck Neck: supple, normal ROM - Respiratory Respiratory effort: normal Respiratory: bilateral: CTA - Breasts Breasts: normal - Cardiovascular Rhythm: regular Heart Sounds: Present: S1 & S2. Absent: gallop, rub Extremities: pulses intact, No edema, normal color, Full ROM - Gastrointestinal General gastrointestinal: Present: soft, non-tender, non-distended, normal bowel sounds - Genitourinary Male genitourinary: normal - Integumentary Integumentary: clear, warm, dry - Musculoskeletal Musculoskeletal: 1, strength equal bilaterally - Neurologic Neurologic: moves all extremities - Psychiatric Psychiatric: memory intact, appropriate mood/affect, intact judgment & insight - Constitutional Vitals: Vital Signs - 12hr 07/20/20 07/20/20 07/20/20 04:00 05:03 08:00 Temperature 97.4 F L 98.2 F Pulse Rate 90 90 88 Respiratory 14 18 Rate Blood Pressure 136/66 136/66 128/60 O2 Sat by Pulse 98 99 Oximetry 07/20/20 07/20/20 07/20/20 09:30 11:38 11:45 Temperature 98.2 F 98 F Pulse Rate 91 H 87 86 Respiratory 16 19 18 Rate Blood Pressure 119/62 112/47 112/46 O2 Sat by Pulse 100 98 96 Oximetry 07/20/20 07/20/20 07/20/20 11:50 11:55 12:10 Temperature Pulse Rate 90 90 86 Respiratory 18 19 18 Rate Blood Pressure 117/50 117/50 115/50 O2 Sat by Pulse 98 98 98 Oximetry - Labs CBC & Chem 7: 07/21/20 04:38 07/21/20 04:38 Labs: Abnormal lab results 07/19/20 07/19/20 07/20/20 Range/Units 16:42 20:48 05:07 RBC 2.19 L (3.65-5.03) M/mm3 Hgb 7.3 L (11.8-15.2) gm/dl Hct 21.0 L (35.5-45.6) % MCV 96 H (84-94) fl MCH 33 H (28-32) pg MCHC 35 H (32-34) % RDW 16.2 H (13.2-15.2) % POC Glucose 131 H 151 H (70-105) mg/dL HEART Score - HEART Score EKG: Non-specific Age: 45-65 Risk factors: > 3 risk factors or hx of atherosclerotic disease Troponin: Troponin T 0.058 ng/mL (0.00-0.029) H D 07/16/20 04:28 Troponin: 1-3x normal limit - Critical Actions Critical Actions: 4-6 pts:12-16.6% risk of adverse cardiac event. Should be admitted
[2020-07-20 14:20] LABS: BUN/Creatinine Ratio 19; Blood Urea Nitrogen 23 mg/dL (9-20); Calcium 8.2 mg/dL (8.4-10.2); Hemolysis Index 4
[2020-07-20] MEDS: PANTOPRAZOLE 20 MG TAB PO SCH (15:50)
[2020-07-20] MEDS: FENOFIBRATE 145 MG TAB PO SCH (15:50)
[2020-07-20] MEDS: CLOPIDOGREL 75 MG TAB PO SCH (15:50)
[2020-07-20] MEDS: NIFEdipine XL 60 MG TAB PO SCH (15:50)
--- NOTE | 2020-07-20 15:52 | Cat Scan Report ---
CT abdomen pelvis w con INDICATION: GI bleed. TECHNIQUE: All CT scans at this location are performed using CT dose reduction for ALARA by means of automated e xposure control. COMPARISON: None available. FINDINGS: Small right pleural effusion, with slight atelectasis in both lung bases. Liver, gallbladder, and spl een are negative. Mild inflammatory changes demonstrated surrounding the pancreatic tail, and there i s coarse calcification throughout much of the pancreas. Kidneys and adrenals are negative. Abdominal aorta is normal in size. No adenopathy. Pelvis Normal appendix. Several areas of the colon appear slightly thick walled and edematous, specifically the right transverse colon and the rectosigmoid colon. Small bowel is fluid-filled and minimally dist ended, but with no evidence of inflammation. Urinary bladder is negative. No significant skeletal lesions. IMPRESSION: 1. Chronic calcific pancreatitis, with what appears to be some degree of acute pancreatitis involving the pancreatic tail. 2. Mild, fairly diffuse colitis, involving the right, transverse and rectosigmoid colon. Signer Name: En Elaine MD Signed: 07/20/2020 3:48 PM Workstation Name: [id number]
[2020-07-20] MEDS: guaiFENesin DM 200/20 MG ORAL LIQD 10 ML PO PRN (21:14)
[2020-07-20] MEDS: HYDROmorphone 1 MG/1 ML INJ IV PRN (21:15)
[2020-07-21] MEDS: INSULIN GLARGINE 100 UNITS/ML SUB-Q SCH ×2 (00:34→22:14)
[2020-07-21] MEDS: INSULIN LISPRO 100 UNIT/ML SUB-Q SCH ×5 (00:34→22:14)
[2020-07-21 05:41] LABS: Basophils # (Auto) 0.1 K/mm3 (0.0-0.1); Basophils % (Auto) 1.3 % (0.0-1.8); Eosinophils # (Auto) 0.1 K/mm3 (0.0-0.4); Eosinophils % (Auto) 0.7 % (0.0-4.3); Hematocrit 20.1 % (35.5-45.6); Lymphocytes # (Auto) 2.4 K/mm3 (1.2-5.4); Lymphocytes % (Auto) 29.5 % (13.4-35.0); Mean Corpuscular HGB Conc 35 % (32-34); Mean Corpuscular Volume 96 fl (84-94); Monocytes # (Auto) 0.9 K/mm3 (0.0-0.8); Monocytes % (Auto) 10.4 % (0.0-7.3); Platelet Count 214 K/mm3 (140-440); Red Blood Count 2.09 M/mm3 (3.65-5.03); Red Cell Distribution Width 16.5 % (13.2-15.2)
[2020-07-21 05:46] LABS: BUN/Creatinine Ratio 16; Blood Urea Nitrogen 23 mg/dL (9-20); Calcium 8.1 mg/dL (8.4-10.2); Hemolysis Index 2
[2020-07-21] MEDS: hydrALAZINE 25 MG TAB PO SCH ×3 (08:06→22:45)
[2020-07-21] MEDS: carvediloL 3.125 MG TAB PO SCH ×2 (10:20→22:45)
[2020-07-21] MEDS: NIFEdipine XL 60 MG TAB PO SCH (10:21)
[2020-07-21] MEDS: FENOFIBRATE 145 MG TAB PO SCH (10:21)
[2020-07-21] MEDS: PANTOPRAZOLE 20 MG TAB PO SCH (10:22)
[2020-07-21] MEDS: CLOPIDOGREL 75 MG TAB PO SCH (10:22)
--- NOTE | 2020-07-21 11:10 | Progress Note ---
Assessment and Plan Atypical chest pain Hx of CAD patient has had several serial cardiac catheterizations most recently in 2019,that showed patent single-vessel stent and no significant residual coronary lesions. LVEF normal to hyperdynamic at 65-70%. Severe anemia with a hematocrit of 21 s/p ECG and colonoscopy Recommendations Continue medical therapy for coronary artery disease. Otherwise, conservative cardiac management. Will follow intermittently. Subjective Date of service: 07/21/20 Principal diagnosis: Symptomatic anemia, acute coronary syndrome Interval history: No cardiac complaints. Stable sinus rhythm on telemetry. Objective Vital Signs Temp Pulse Resp BP Pulse Ox 07/21/20 07:52 97.6 F 88 18 127/61 98 07/21/20 04:06 98.0 F 87 14 109/41 95 07/21/20 00:12 97.6 F 92 H 18 116/45 97 07/20/20 21:15 22 07/20/20 21:14 98 H 128/56 07/20/20 19:53 97.7 F 98 H 18 128/56 99 07/20/20 16:14 97.4 F L 98 H 18 147/63 99 07/20/20 12:10 86 18 115/50 98 07/20/20 11:55 90 19 117/50 98 07/20/20 11:50 90 18 117/50 98 07/20/20 11:45 86 18 112/46 96 07/20/20 11:38 98 F 87 19 112/47 98 - Physical Examination General: No Apparent Distress HEENT: Positive: PERRL Neck: Positive: neck supple Cardiac: Positive: Reg Rate and Rhythm Lungs: Positive: Decreased Breath Sounds Neuro: Positive: Grossly Intact Abdomen: Positive: Soft Extremities: Absent: edema - Labs and Meds CBC 07/21/20 Range/Units 04:38 WBC 8.3 (4.5-11.0) K/mm3 RBC 2.09 L (3.65-5.03) M/mm3 Hgb 7.0 L (11.8-15.2) gm/dl Hct 20.1 L (35.5-45.6) % Plt Count 214 (140-440) K/mm3 Lymph # (Auto) 2.4 (1.2-5.4) K/mm3 [place] # (Auto) 0.9 H (0.0-0.8) K/mm3 Eos # (Auto) 0.1 (0.0-0.4) K/mm3 Baso # (Auto) 0.1 (0.0-0.1) K/mm3 Comprehensive Metabolic Panel 07/20/20 07/21/20 Range/Units 13:46 04:38 Sodium 132 L 134 L (137-145) mmol/L Potassium 3.8 3.6 (3.6-5.0) mmol/L Chloride 103.7 105.8 (98-107) mmol/L Carbon Dioxide 22 22 (22-30) mmol/L BUN 23 H 23 H (9-20) mg/dL Creatinine 1.2 1.4 H (0.8-1.3) mg/dL Glucose 92 87 (75-100) mg/dL Calcium 8.2 L 8.1 L (8.4-10.2) mg/dL
[2020-07-21] MEDS ORDERED: SODIUM CHLORIDE 0.9% 500 ML 500 ML IV SCH (11:29)
[2020-07-21] MEDS: levoFLOXacin 750 MG TAB PO SCH (13:30)
[2020-07-21] MEDS: metroNIDAZOLE 500 MG TAB PO SCH ×2 (13:30→22:12)
--- NOTE | 2020-07-21 14:17 | Gastroenterology Progress Note ---
Assessment and Plan # Iron deficiency anemia - Most prior labs in system with Hgb at 12 in 03/2019. It would be helpful to obtain outpatient records of labs in 2020. - Hgb down to 7 on admission and stable overnight. - no overt signs of GI bleeding. - EGD and colonoscopy in 05/2019 with [facility]. EGD showed mild gastritis (path negative for HP) and colonoscopy showed diffuse diverticulosis and a small TA polyp removed. - s/p repeat EGD and colonoscopy on 07/20/2020. EGD with mild gastritis. Colonoscopy with pandiverticulosis and internal hemorrhoids, fair prep. - CT a/p showing signs of mild pancreatitis and mild colitis. - patient without any clinical symptoms to correlate for pancreatitis. No abdominal pain or nausea/vomiting. Tolerating diet. Rec - recommend cont with PPI - recommend iron supplements. - ok for empiric antibiotics although no clear signs of colitis on colonoscopy. - ok for discharge per GI standpoint. Follow up outpatient either with us or with his outpatient GI, [facility], Dr. No. Subjective Date of service: 07/21/20 Principal diagnosis: Symptomatic anemia, acute coronary syndrome Interval history: Patient underwent EGD and colonoscopy. Reports feeling fine and no abdominal pain. His abdominal bloating has improved. having brown loose stools. Objective - Constitutional Vitals: Temp Pulse Resp BP Pulse Ox 97.8 F 93 H 18 135/58 100 07/21/20 12:25 07/21/20 12:25 07/21/20 12:25 07/21/20 12:25 07/21/20 12:25 General appearance: no acute distress - EENT Eyes: EOM intact ENT: hearing intact - Respiratory Respiratory effort: normal - Cardiovascular Rhythm: regular Heart Sounds: Present: S1 & S2 - Gastrointestinal General gastrointestinal: Present: soft, non-tender, non-distended, normal bowel sounds - Integumentary Integumentary: Present: clear, warm - Labs CBC & Chem 7: 07/21/20 04:38 07/21/20 04:38 Labs: Laboratory Results - last 24 hr 07/16/20 07/20/20 07/20/20 21:32 05:10 11:44 WBC RBC Hgb Hct MCV MCH MCHC RDW Plt Count Lymph % (Auto) [place] % (Auto) Eos % (Auto) Baso % (Auto) Lymph # (Auto) [place] # (Auto) Eos # (Auto) Baso # (Auto) Seg Neutrophils % Seg Neutrophils # Sodium Potassium Chloride Carbon Dioxide Anion Gap BUN Creatinine Estimated GFR BUN/Creatinine Ratio Glucose POC Glucose 64 L Calcium RBC Folic Acid >1000 Crossmatch See Detail 07/20/20 07/20/20 07/20/20 12:01 13:46 16:29 WBC RBC Hgb Hct MCV MCH MCHC RDW Plt Count Lymph % (Auto) [place] % (Auto) Eos % (Auto) Baso % (Auto) Lymph # (Auto) [place] # (Auto) Eos # (Auto) Baso # (Auto) Seg Neutrophils % Seg Neutrophils # Sodium 132 L Potassium 3.8 Chloride 103.7 Carbon Dioxide 22 Anion Gap 10 BUN 23 H Creatinine 1.2 Estimated GFR > 60 BUN/Creatinine Ratio 19 Glucose 92 POC Glucose 102 94 Calcium 8.2 L RBC Folic Acid Crossmatch 07/20/20 07/21/20 07/21/20 20:32 04:38 04:38 WBC 8.3 RBC 2.09 L Hgb 7.0 L Hct 20.1 L MCV 96 H MCH 33 H MCHC 35 H RDW 16.5 H Plt Count 214 Lymph % (Auto) 29.5 [place] % (Auto) 10.4 H Eos % (Auto) 0.7 Baso % (Auto) 1.3 Lymph # (Auto) 2.4 [place] # (Auto) 0.9 H Eos # (Auto) 0.1 Baso # (Auto) 0.1 Seg Neutrophils % 58.1 Seg Neutrophils # 4.8 Sodium 134 L Potassium 3.6 Chloride 105.8 Carbon Dioxide 22 Anion Gap 10 BUN 23 H Creatinine 1.4 H Estimated GFR > 60 BUN/Creatinine Ratio 16 Glucose 87 POC Glucose 251 H Calcium 8.1 L RBC Folic Acid Crossmatch 07/21/20 07/21/20 07:49 12:07 WBC RBC Hgb Hct MCV MCH MCHC RDW Plt Count Lymph % (Auto) [place] % (Auto) Eos % (Auto) Baso % (Auto) Lymph # (Auto) [place] # (Auto) Eos # (Auto) Baso # (Auto) Seg Neutrophils % Seg Neutrophils # Sodium Potassium Chloride Carbon Dioxide Anion Gap BUN Creatinine Estimated GFR BUN/Creatinine Ratio Glucose POC Glucose 78 110 H Calcium RBC Folic Acid Crossmatch
--- NOTE | 2020-07-21 15:47 | Discharge Summary ---
Providers - Providers Date of Admission: 07/16/20 11:00 Date of discharge: 07/21/20 Attending physician: KACIE OLGUIN 07/15/20 16:11 Consult to Physician [CONS] Urgent Comment: Consulting Provider: LASHAWN GLASGOW Physician Instructions: Reason For Exam: cp, hx of stent 07/17/20 18:05 Consult to Physician [CONS] Routine Comment: Consulting Provider: NICOLE HASSAN Physician Instructions: Reason For Exam: Anemia Primary care physician: COWLMAN Hospitalization Condition: Stable Hospital course: 60-year old male with a past medical history of CAD with 4 stents, CHF, diabetes, hypertension, and recent diagnosis of anemia presents to the hospital complaints of chest pain. He received nitroglycerin x2 and aspirin 325 mg in route and pain decreased to 4/10. Patient stated he is currently awaiting Covid test results. Covid test was collected by the health department yesterday. He reports a positive Covid exposure, cough, and recent loss of taste or smell that is "just starting to come back". Patient also reports that he was recent diagnosed with anemia and did not have blood in his stools. 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 Patient reports compliance with his medications including aspirin and Plavix. Patient was further evaluated with a repeat Covid test and that was negative. Cardiology was consulted for evaluation of chest pain but patient noted to have anemia with hematocrit acute of 21 and recommended work-up for anemia before any further in tervention. GI was consulted and patient was evaluated with a EGD and colonoscopy and findings were essentially negative. Following the endoscopy patient had a CT abdomen pelvis with contrast which showed sign of chronic pancreatitis and mild diffuse colitis. Patient was started on empiric antibiotics orally for colitis. Patient did not have any abdominal pain nausea vomiting and diarrhea and was able to tolerate diet. Cardiology recommended no further additional cardiac work-up since patient had several serial cardiac catheterization most recent one was on 2019 which showed patent single-vessel stent and no significant residual coronary lesion with preserved ejection fraction. GI recommended conservative management, abstinence from alcohol and further work-up as outpatient. Patient verbalized understanding and was discharged home in stable condition after transfusing 1 unit of packed RBC. Discharge diagnosis: --Atypical chest pain, likely due to GERD and chronic pancreatitis --Chronic pancreatitis, need further outpatient follow-up recommended abstinence from alcohol --Mild diffuse colitis, complete antibiotic as outpatient --History of coronary artery disease continue cardiac medications and follow-up with cardiology --Severe anemia with hematocrit of 21 status post EGD and colonoscopy, and 1 unit of packed RBC transfusion. Further follow-up as outpatient --Insulin-dependent diabetes mellitus type 2, continue insulin coverage --Hyperlipidemia, continue statin --Hypertension, stable --Alcohol abuse, counselled for abstinence Disposition: - TO HOME OR SELFCARE Time spent for discharge: 34 minutes Core Measure Documentation - Palliative Care Palliative Care/ Comfort Measures: Not Applicable - Core Measures Any of the following diagnoses?: history only Exam - Physical Exam Narrative exam: General appearance: Present: no acute distress, well-nourished - EENT Eyes: PERRL, EOM intact ENT: hearing intact, clear oral mucosa Ears: bilateral: normal - Neck Neck: supple, normal ROM - Respiratory Respiratory effort: normal Respiratory: bilateral: CTA - Breasts Breasts: normal - Cardiovascular Rhythm: regular Heart Sounds: Present: S1 & S2. Absent: gallop, rub Extremities: pulses intact, No edema, normal color, Full ROM - Gastrointestinal General gastrointestinal: Present: soft, non-tender, non-distended, normal bowel sounds - Genitourinary Male genitourinary: normal - Integumentary Integumentary: clear, warm, dry - Musculoskeletal Musculoskeletal: 1, strength equal bilaterally - Neurologic Neurologic: moves all extremities - Psychiatric Psychiatric: memory intact, appropriate mood/affect, intact judgment & insight - Constitutional Vitals: Temp Pulse Resp BP Pulse Ox 97.8 F 93 H 18 135/58 100 07/21/20 12:25 07/21/20 12:25 07/21/20 12:25 07/21/20 12:25 07/21/20 12:25 Plan Activity: advance as tolerated Weight Bearing Status: Weight Bear as Tolerated Diet: low fat, low salt, other (No alcohol) Additional Instructions: Follow-up with GI as outpatient for capsule endoscopy. Follow-up with cardiology as outpatient Follow up with: LASHAE ARAMBULA MD [Primary Care Provider] - 7 Days LASHAWN GLASGOW MD [Staff Physician] - 7 Days ARYA KNUTSON MD [Staff Physician] - 7 Days Prescriptions: Ciprofloxacin HCl [Ciprofloxacin TAB] 250 mg PO BID #8 tablet metroNIDAZOLE [Flagyl TAB] 500 mg PO Q8HR #14 tablet Folic Acid [Folvite] 1 mg PO QDAY #30 tablet Thiamine [Vitamin B-1] 100 mg PO QDAY #30 tablet
[2020-07-21] MEDS: oxyCODONE /ACETAMINOPHEN 5-325MG TAB PO PRN (16:14)
--- NOTE | 2020-07-21 16:35 | Post Anesthesia Evaluation ---
- Post Anesthesia Evaluation Patient Participated: Yes Airway Patent: Yes Stable Respiratory Function: Yes Nausea/Vomiting: No Temp > 96.8F: Yes Pain Manageable: Yes Adequeate Hydration: Yes Anesthesia Complications: No Patient on Ventilator: No
[2020-07-21] MEDS: HYDROmorphone 1 MG/1 ML INJ IV PRN (22:24)
[2020-07-21] MEDS: guaiFENesin DM 200/20 MG ORAL LIQD 10 ML PO PRN (22:25)
[2020-07-22 04:23] VITALS: BP 145/67
[2020-07-22 06:19] LABS: Hematocrit 24.3 % (35.5-45.6); Hemoglobin 8.4 gm/dl (11.8-15.2)
[2020-07-22] MEDS: hydrALAZINE 25 MG TAB PO SCH ×2 (06:47→13:47)
[2020-07-22] MEDS: metroNIDAZOLE 500 MG TAB PO SCH ×2 (06:47→13:48)
[2020-07-22] MEDS: INSULIN LISPRO 100 UNIT/ML SUB-Q SCH ×2 (08:33→12:23)
[2020-07-22] MEDS: PANTOPRAZOLE 20 MG TAB PO SCH (10:34)
[2020-07-22] MEDS: FENOFIBRATE 145 MG TAB PO SCH (10:34)
[2020-07-22] MEDS: CLOPIDOGREL 75 MG TAB PO SCH (10:34)
[2020-07-22] MEDS: carvediloL 3.125 MG TAB PO SCH (10:35)
[2020-07-22] MEDS: NIFEdipine XL 60 MG TAB PO SCH (10:35)
[2020-07-22] MEDS: levoFLOXacin 750 MG TAB PO SCH (13:47)
--- NOTE | 2020-07-22 14:04 | Event Note ---
Date: 07/22/20 Patient seen and examined Patient had Hb 7.0 yesterday and ordered for PRBC which was not ready even late afternoon, so his discharge was on hold patient has Hb of 8.4 today, s/p one unit PRBC transfusion vitals stable, no active bleeding, tolerating diet patient stable for d/c today
== END 2020-07-22 16:26 | disposition home or self-care (01) | DRG 392 ==
LOC: ED 14:20 → 3A 16:48 → OBSVTOIN 07-16 11:00 → 4A 07-16 23:03
PROVIDERS: ADMIT Internal Medicine; ATTEND Internal Medicine
PROC: 0DJ08ZZ Inspection of Upper Intestinal Tract, Via Natural or Artificial Opening Endoscopic (ICD-10-PCS; principal; 2020-07-20)
PROC: 0DJD8ZZ Inspection of Lower Intestinal Tract, Via Natural or Artificial Opening Endoscopic (ICD-10-PCS; 2020-07-20)
PROC: 30233N1 Transfusion of Nonautologous Red Blood Cells into Peripheral Vein, Percutaneous Approach (ICD-10-PCS; 2020-07-21)
DX: K21.9 Gastro-esophageal reflux disease without esophagitis (principal); K86.1 Other chronic pancreatitis; I24.9 Acute ischemic heart disease, unspecified; K44.9 Diaphragmatic hernia without obstruction or gangrene; K52.89 Other specified noninfective gastroenteritis and colitis; D64.9 Anemia, unspecified; R77.8 Other specified abnormalities of plasma proteins; K29.40 Chronic atrophic gastritis without bleeding; E78.5 Hyperlipidemia, unspecified; Z20.822 Contact with and (suspected) exposure to COVID-19; I11.0 Hypertensive heart disease with heart failure; E11.65 Type 2 diabetes mellitus with hyperglycemia; F10.10 Alcohol abuse, uncomplicated; I25.10 Atherosclerotic heart disease of native coronary artery without angina pectoris; I50.9 Heart failure, unspecified; Z95.5 Presence of coronary angioplasty implant and graft; Z79.4 Long term (current) use of insulin; Z79.899 Other long term (current) drug therapy; Z79.82 Long term (current) use of aspirin
CPT/HCPCS: 36415; 71045; 74177; 80048; 80053; 80061; 80076; 82270; 82271; 82550; 82553; 82607; 82728; 82747; 82947; 82962; 83036; 83550; 83615; 83880; 84145; 84484; 85007; 85014; 85018; 85025; 85027; 85379; 86140; 86850; 86900; 86901; 86920; 93005; 94640; 96374; G0378; A9270-GY; J1170; J1815; J2704; J7030; J7040; P9016; U0003